=== PATIENT | female | born 1955 | race Caucasian/White ===

== ENCOUNTER 2016-10-07 20:10 | Emergency (ER) | payer BC ==
[~2016-10-07] VITALS: Ht 157.5 cm; Wt 95.3 kg
[~2016-10-07 20:10] MED LIST: CYCL-375 PO; HYDR-3989 PO; IBUP-1724 PO; MULT-1147 PO; PROP10TA10 PO
[2016-10-07 20:14] VITALS: Ht 157.5 cm; Wt 95.3 kg
--- OUTSIDE RECORDS SUMMARY | 2016-10-07 20:14 | XMS REPORT | Referral Summary ---
Author Author [facility], [facility] Organization [facility] Address Unknown Phone Unavailable Care Team Providers Care Lab Aide Name Role Phone Omkar Field Primary Care Physician [phone] Encounter VC Date(s): 07/20/16 - 07/20/16 [facility] [address] [place] [id number] Discharge Diagnosis: Pain, upper back Discharge Diagnosis: Chest pain Discharge Diagnosis: Anemia, iron deficiency Discharge Disposition: 01-Home or Self Care Attending Physician: Omkar Field DO Admitting Physician: Omkar Field DO Vital Signs Most recent to 1 oldest [Reference Range]: Peripheral Pulse 75 bpm Rate [60-100 bpm] (07/20/16 1:20 PM) Respiratory Rate 18 br/min [14-20 br/min] (07/20/16 1:20 PM) Blood Pressure 142/110 mmHg [90-140/60-90 mmHg] *HI* (07/20/16 1:20 PM) SpO2 98 % (07/20/16 1:20 PM) Problem List Condition Effective Dates Status Health Status Informant Back pain, Active chronic(Confirmed) Neck pain(Confirmed) Active Obesity(Confirmed) Active patient Right lumbar Active radiculitis(Confirme d) Tobacco Active patient user(Confirmed) Allergies, Adverse Reactions, Alerts Substance Reaction Severity Status cefaclor Trouble Breathing Active [id number] Active clindamycin Active Rocephin Active Vistaril Anxiety Active 1aka Rocephin Medications cyclobenzaprine 10 mg oral tablet 10 mg 1 tabs, Oral, q6hr, as needed for spasm, # 30 tabs, 0 Refill(s), Pharmacy : [id number], 1 tabs Oral q6hr,PRN:as needed for spasm Start Date: 07/20/16 Stop Date: 08/20/16 Status: Ordered ibuprofen 800 mg, Oral, q8hr, as needed for pain, 0 Refill(s) Start Date: 04/20/16 Status: Ordered lisinopril 20 mg oral tablet 20 mg 1 tabs, Oral, Daily, # 30 tabs, 0 Refill(s), Pharmacy: [id number] Start Date: 07/20/16 Status: Ordered propranolol 10 mg oral tablet 10 mg 1 tabs, Oral, BID, # 60 tabs, 1 Refill(s), Pharmacy: [id number], 1 tabs Oral BID Start Date: 07/05/16 Status: Ordered Results Hematology Most recent to 1 oldest [Reference Range]: WBC [4.8-10.8 7.1 10*3/uL 10*3/uL] (07/20/16 2:45 PM) RBC [4.00-5.20] 3.96 *LOW* (07/20/16 2:45 PM) Hgb [12.0-16.0 10.0 gm/dL gm/dL] *LOW* (07/20/16 2:45 PM) Hct [37.0-47.0 %] 33.2 % *LOW* (07/20/16 2:45 PM) MCV [82.0-99.0 fL] 83.8 fL (07/20/16 2:45 PM) MCH [27.0-32.0 pg] 25.3 pg *LOW* (07/20/16 2:45 PM) MCHC [32.0-36.0 30.1 gm/dL gm/dL] *LOW* (07/20/16 2:45 PM) RDW [11.5-14.5 %] 13.1 % (07/20/16 2:45 PM) Platelet [150-400 301 10*3/uL 10*3/uL] (07/20/16 2:45 PM) MPV [8.8-14.8 fL] 10.8 fL (07/20/16 2:45 PM) Immature 0.0 % Granulocytes (07/20/16 2:45 PM) [0.0-1.0 %] Neutrophils [51-75 55 % %] (07/20/16 2:45 PM) Lymphocytes [20-46 38 % %] (07/20/16 2:45 PM) Monocytes [4-11 %] 5 % (07/20/16 2:45 PM) Eosinophils [0-4 %] 1 % (07/20/16 2:45 PM) Basophils [0-2 %] 1 % (07/20/16 2:45 PM) Neutro Absolute 3.87 [1.90-7.00] (07/20/16 2:45 PM) Lymph Absolute 2.72 [0.80-3.30] (07/20/16 2:45 PM) Desha Absolute 0.37 [0.30-1.00] (07/20/16 2:45 PM) Eos Absolute 0.09 [0.00-0.50] (07/20/16 2:45 PM) Baso Absolute 0.04 [0.00-0.20] (07/20/16 2:45 PM) Chemistry Most recent to 1 oldest [Reference Range]: Sodium Lvl [135-144 143 mEq/L mEq/L] (07/20/16 2:45 PM) Potassium Lvl 3.9 mEq/L [3.5-5.2 mEq/L] (07/20/16 2:45 PM) Chloride [99-111 110 mEq/L mEq/L] (07/20/16 2:45 PM) CO2 [22-31 mEq/L] 25 mEq/L (07/20/16 2:45 PM) AGAP [3-20] 8 (07/20/16 2:45 PM) BUN [10-20 mg/dL] 15 mg/dL (07/20/16 2:45 PM) Glucose Lvl [70-99 91 mg/dL mg/dL] (07/20/16 2:45 PM) Creatinine Lvl 0.63 mg/dL [0.57-1.11 mg/dL] (07/20/16 2:45 PM) eGFR [>60 mL/min] >60 mL/min 1 (07/20/16 2:45 PM) Calcium Lvl 9.3 mg/dL [8.9-10.5 mg/dL] (07/20/16 2:45 PM) Albumin Lvl [3.5-5.0 4.0 gm/dL gm/dL] (07/20/16 2:45 PM) Total Protein 6.6 gm/dL [6.1-7.7 gm/dL] (07/20/16 2:45 PM) Globulin [1.8-4.0 2.6 gm/dL gm/dL] (07/20/16 2:45 PM) ALT [0-55 U/L] 15 U/L (07/20/16 2:45 PM) AST [5-34 U/L] 13 U/L (07/20/16 2:45 PM) Alk Phos [40-150 92 U/L U/L] (07/20/16 2:45 PM) Bili Total [0.2-1.2 0.3 mg/dL mg/dL] (07/20/16 2:45 PM) Chol [0-199 mg/dL] 244 mg/dL *HI* (07/20/16 2:45 PM) Trig [0-149 mg/dL] 275 mg/dL *HI* (07/20/16 2:45 PM) HDL [40-84 mg/dL] 45 mg/dL (07/20/16 2:45 PM) LDL [0-130 mg/dL] 144 mg/dL *HI* (07/20/16 2:45 PM) VLDL Cholesterol 55 mg/dL [0-28 mg/dL] *HI* (07/20/16 2:45 PM) Cardiac Risk 5.4 [0.0-5.0] *HI* (07/20/16 2:45 PM) TSH with Reflex Free 0.95 T4 [0.35-4.94] (07/20/16 2:45 PM) 1Result Comment: Multiply eGFR results by 1.21 for race. Immunizations No data available for this section Procedures No data available for this section Social History Social History Type Response Smoking Status Current every day smoker; Tobacco use per day: More than 1 pack Assessment and Plan Extracted from: Title: Office Visit Note Author: Omkar Field DO Date: 07/20/16 Assessment/Plan Anemia, iron deficiency 1. We will recheck her iron level today and make recommendations accordingly. If she is again anemic, this could explain her recurrent fatigue. Ordered: CBC w/ Differential Comprehensive Metabolic Panel Lipid Panel Office Visit Level 4 Est 95206 TSH with Reflex Free T4 Chest pain 1. Her history is concerning for recurrent angina. 2. EKG today was for normal sinus rhythm with a rate of 66. 3. Screening labs ordered, report is pending. 4. Cardiology referral for farther evaluation and recommendations. 5. Tobacco cessation recommended. 6. We will set her up for low dose CT of her lungs for the history of greater than 95-gnnf-yukc history and age greater than 55. 7. Follow-up in 2 weeks for reevaluation, sooner if worsening symptoms. Ordered: CBC w/ Differential Comprehensive Metabolic Panel Lipid Panel Office Visit Level 4 Est 27669 TSH with Reflex Free T4 Pain, upper back 1. Her upper back pain is chronic. This is muscular in nature. 2. Continue with heat compressions as previous. 3. Continue with stretching exercises. 4. Continue with muscle relaxers. Ordered: CBC w/ Differential Comprehensive Metabolic Panel Lipid Panel Office Visit Level 4 Est 34462 TSH with Reflex Free T4
--- OUTSIDE RECORDS SUMMARY | 2016-10-07 20:14 | XMS REPORT | Continuity of Care Document ---
Author Author [facility] Organization [facility] Address Unknown Phone Unavailable Support Name Relationship Address Phone SANDYPERCY Bolton Caregiver [address] [place] [address] Unavailable ELY RAWLS MD Caregiver [address] [place] [address] Unavailable MATTEO OGDEN Next Of Kin UNK Unknown [phone] Insurance Providers Guarantor Rhoda Ogden Address [address] [place] [address] Email DENIED/NO TO [facility] Policy Number [id number] Subscriber's Name Rhoda Ogden Relationship 18 Self Group Number [id number] Effective Date 05 Advance Directives Directive Response Recorded Date/Time Advanced Directives Type None 06/23/16 1:18pm Chief Complaint and Reason for Visit Chief Complaint Neck Pain Reason for Visit Neck pain on right side Problems Active Problems Medical Problem Onset Date Status Exacerbation of chronic back pain Unknown Acute Headache Unknown Acute Muscle spasm Unknown Acute Pain, dental Unknown Acute Pain, dental Unknown Acute Strep throat Unknown Acute Tension headache Unknown Acute Past Problems Medical Problem Onset Date Muscle spasm Unknown Neck pain on right side Unknown Medications Current Home Medications Medication Dose Units Route Directions Days Qty Instructions Start Date Cyclobenzaprine Hcl 10 Mg Tablet 1 Tab Oral Twice A Day 10/12/15 Cyclobenzaprine Hcl 10 Mg Tablet 1 Tab Oral Twice A Day 10 Tablet MAY CAUSE DROWSINESS OR DIZZINESS 06/23/16 Hydrocodone/Acetaminophen (Hydrocodon-Acetaminophen 5-325) 5-325 Tablet 1 Tab Oral Every 4-6 Hours as needed for Pain 10 Tablet 06/23/16 Ibuprofen 200 Mg Tablet 2 Tab Oral Every 4 Hours as needed for Pain 06/23/16 Multivits Min/Iron/Fa/Herb#186 (Hair, Skin & Nails Caplet) 1 Each Tablet 1 Tab Oral Daily 06/23/16 Propranolol Hcl 10 Mg Tablet 10 Mg Oral Twice A Day 10/12/15 Past Home Medications Medication Directions Ordered Status Baclofen 10 Mg Tablet, 1 Tab Oral Three Times A Day 03/25/15 Discontinued Ferrous Sulfate (Iron) 325 Mg Tablet, 1 Tab Oral Twice Daily With Meals 10/11 Discontinued Hydrocodone/Acetaminophen (Ellis 5-325 Tablet) 1 Each Tablet, 1 Tab Oral Four Times Daily as needed for Pain 10/12/15 Discontinued Social History Social History Problem Response Recorded Date/Time Onset Date Status Hx Substance Use No 06/23/2016 1:42pm Not Applicable Not Applicable Hx Alcohol Use Y OCC. 06/23/2016 1:42pm Not Applicable Not Applicable Tobacco Usage none 05/03/2014 2:13am Not Applicable Not Applicable Query Response Start Date Stop Date Smoking Status Current every day smoker Hospital Discharge Instructions No hospital discharge instructions. Plan of Care Discharge Date 06/23/16 1:55pm Disposition 01 DISCHARGED HOME, SELF-CARE Condition at Discharge Stable Instructions/Education Provided DI for Cervical Muscle Strain Prescriptions See Medication Section Referrals PERCY SO DO Address: [address] [place] [address] [place] [phone] Additional Instructions/Education Use Flexeril as needed with muscle spasms May use Ellis for severe pain Follow up with Dr So for further treatment and evaluation Care Plan and Goals Physician Care Plan Problem:Right lateral neck spasms Goal: Follow up with primary care provider Instructions: Use Flexeril as needed with muscle spasms May use Ellis for severe pain Follow up with Dr So for further treatment and evaluation Functional Status No functional status results. Allergies, Adverse Reactions, Alerts Allergen Type Severity Reaction Status Last Updated Hydroxyzine Allergy Unknown Active 06/23/16 Cefaclor Allergy Unknown DYSPNEA Active 06/23/16 Clindamycin Allergy Unknown Active 06/23/16 Povidone-iodine Allergy Unknown Active 06/23/16 Immunizations Query Response on File Recorded Date/Time Hx Influenza Vaccination Y fall 201303/25/15 1:33pm Hx Influenza Vaccination Y fall 201303/25/15 1:33pm Influenza Vaccine Hx 2016 06/23/16 1:42pm Vital Signs Acute Vital Signs Vital Response Date/Time Temperature (Fahrenheit) 98.9 deg F (96.8 - 99.1) 06/23/2016 1:56pm Temperature (Calculated Celsius) 37.62410 degrees C (36.0 - 37.3) 06/23/2016 1:56pm Pulse Rate (adult) 89 bpm (60 - 100) 06/23/2016 1:56pm Respiratory Rate 14 breaths/min (10 - 20) 06/23/2016 1:56pm O2 Sat by Pulse Oximetry 95 % (90 - 100) 06/23/2016 1:56pm Blood Pressure 166/94 mm Hg 06/23/2016 1:56pm Height (Feet) 5 feet 06/23/2016 1:18pm Height (Inches) 2.00 inches 06/23/2016 1:18pm Weight (Kilograms) 92.100 kg 06/23/2016 1:18pm Body Mass Index (BMI) 37.0 06/23/2016 1:18pm Results No known relevant diagnostic tests, laboratory data and/or discharge summary. Procedures Procedure Status Date Provider(s) THER/PROPH/DIAG INJ SC/IM Completed 04/19/16 EMERGENCY DEPT VISIT Completed 04/19/16 [id number]"INJECTION, KETOROLAC TROMETHAMINE, PER 15 MG" Completed 04/19/16 Encounters Encounter Location Arrival/Admit Date Discharge/Depart Date Attending Provider Departed Emergency Room [facility] 06/23/16 1:14pm 06/23/16 1: 55pm ELY RAWLS MD Departed Emergency Room [facility] 04/19/16 1:22pm 04/19/16 2: 19pm ARSEN SHAH DO Recent Diagnosis
--- OUTSIDE RECORDS SUMMARY | 2016-10-07 20:14 | XMS REPORT | Continuity of Care Document ---
Author Author [facility] Organization [facility] Address Unknown Phone Unavailable Support Name Relationship Address Phone NAE GOMEZ MD Caregiver [address] [place] [address] [place] [phone] LESLIE DAVIS Next Of Kin Unknown [phone] Insurance Providers Payer Name Policy Number Subscriber Name Relationship [facility] [id number] Rhoda Marquez 20 Self Advance Directives Directive Response Recorded Date/Time Advanced Directives Type None 06/07/14 3:35pm Problems Medical Problems Problem Onset Date Status Exacerbation of chronic back pain Unknown Active Muscle spasm Unknown Active Pain, dental Unknown Active Pain, dental Unknown Active Medications Medication Dose Route Sig Days/Qty Instructions Order Date Discontinued Date Status Baclofen 10 Mg PO THREE TIMES A DAY For SPASMS 30 Qty 05/03/14 Active [No Known Meds] 05/03/14 Active Clindamycin HCl 300 Mg PO THREE TIMES A DAY 7 Days 06/07/14 Active Oxycodone HCl/Acetaminophen 1 Tab PO FOUR TIMES DAILY 20 Qty 06/07/14 Active Social History Social History Problem Response Recorded Date/Time Smoking Status Current every day smoker 06/07/2014 3:35pm When did patient START smoking? AGE 19 06/07/2014 3:35pm Query Response Start Date Stop Date Smoking Status Current every day smoker Hospital Discharge Instructions No hospital discharge instructions. Plan of Care No plan of care. Functional Status Query Response Date Recorded Physical Hygiene Self June 07, 2014 3:35pm Disabilities None June 07, 2014 3:35pm Devices Used None June 07, 2014 3:35pm Dressing Self June 07, 2014 3:35pm Ambulation Self June 07, 2014 3:35pm Diet Self June 07, 2014 3:35pm Mental Status Alert Oriented June 07, 2014 3:35pm Disabilities None June 07, 2014 3:35pm Devices Used None June 07, 2014 3:35pm Physical Hygiene Self June 07, 2014 3:35pm Dressing Self June 07, 2014 3:35pm Ambulation Self June 07, 2014 3:35pm Diet Self June 07, 2014 3:35pm Allergies, Adverse Reactions, Alerts Allergen Type Severity Reaction Status Last Updated Hydroxyzine Allergy Unknown Active 06/07/14 Soap Allergy Unknown Active 06/07/14 Cefaclor Allergy Unknown DYSPNEA Active 06/07/14 Povidone-iodine Allergy Unknown Active 06/07/14 Immunizations Name Given Type Hx Influenza Vaccination Y FALL 2013 Historical Hx Influenza Vaccination Y FALL 2013 Historical Vital Signs Acute Vital Signs Vital Response Date/Time Temperature (Fahrenheit) 97.2 deg F (96.8 - 99.1) Temperature (Calculated Celsius) 36.14189 degrees C (36.0 - 37.3) Pulse Rate (adult) 59 bpm (60 - 100) Respiratory Rate 20 breaths/min (10 - 20) O2 Sat by Pulse Oximetry 95 % (90 - 100) Blood Pressure 145/81 mm Hg Height 5 ft 2 in Weight 197 lb Body Mass Index 36.0 kg/m^2 Results Test Source Date Result Interp. Ref. Range Comments Alanine Aminotransferase (ALT/SGPT) January 24, 2008 9:28pm 19 U/L N 9-52 Albumin January 24, 2008 9:28pm 4.3 G/DL N 3.5-5.0 Albumin/Globulin Ratio January 24, 2008 9:28pm 1.3 RATIO N 1.1-2.2 Alkaline Phosphatase January 24, 2008 9:28pm 82 U/L N 38-126 Amylase Level January 24, 2008 9:28pm 53 U/L N 30-110 Anion Gap January 24, 2008 9:28pm 12.6 MEQ/L N 5-15 Aspartate Amino Transf (AST/SGOT) January 24, 2008 9:28pm 24 U/L N 14-59 BUN/Creatinine Ratio January 24, 2008 9:28pm 15 RATIO N 6-26 Basophils # (Auto) January 24, 2008 9:28pm 0.0 T/MM3 N 0-0.2 Basophils (%) (Auto) January 24, 2008 9:28pm 0.3 % N 0-2 Blood Urea Nitrogen January 24, 2008 9:28pm 11 MG/DL N 7-17 Calcium Level January 24, 2008 9:28pm 9.4 MG/DL N 8.4-10.2 Calculated Osmolality January 24, 2008 9:28pm 276 MOSM/KG N 273-286 Carbon Dioxide Level January 24, 2008 9:28pm 26 MEQ/L N 22-30 Chloride Level January 24, 2008 9:28pm 105 MEQ/L N 98-107 Creatinine January 24, 2008 9:28pm 0.7 MG/DL N 0.7-1.2 Eosinophils # (Auto) January 24, 2008 9:28pm 0.1 T/MM3 N 0-0.5 Eosinophils (%) (Auto) January 24, 2008 9:28pm 0.8 % N 0-4 Globulin January 24, 2008 9:28pm 3.3 G/DL N 2-3.6 Glucose Level January 24, 2008 9:28pm 105 MG/DL N 74-106 Hematocrit January 24, 2008 9:28pm 40.9 % N 36-46 Hemoglobin January 24, 2008 9:28pm 13.9 GM/DL N 12-16 Lipase January 24, 2008 9:28pm 95 U/L N 23-300 Lymphocytes # (Auto) January 24, 2008 9:28pm 2.7 T/MM3 N 1-4.8 Lymphocytes (%) (Auto) January 24, 2008 9:28pm 36.7 % N 23-45 Mean Corpuscular Hemoglobin January 24, 2008 9:28pm 30.6 UUG N 26-34 Mean Corpuscular Hemoglobin Concent January 24, 2008 9:28pm 34.0 GM/DL N 31 -37 Mean Corpuscular Volume January 24, 2008 9:28pm 90.1 UM3 N 80-100 Mean Platelet Volume January 24, 2008 9:28pm 10.5 UM3 H 7.4-10.4 Monocytes # (Auto) January 24, 2008 9:28pm 0.3 T/MM3 N 0-0.8 Monocytes (%) (Auto) January 24, 2008 9:28pm 4.4 % N 0-9.0 Neutrophils # (Auto) January 24, 2008 9:28pm 4.2 T/MM3 N 1.8-7.7 Neutrophils (%) (Auto) January 24, 2008 9:28pm 57.8 % N 33-66 Platelet Count January 24, 2008 9:28pm 204 T/MM3 N 130-400 Potassium Level January 24, 2008 9:28pm 4.4 MEQ/L N 3.6-5 RDW Standard Deviation January 24, 2008 9:28pm 41.7 FL N 36.9-50.2 Red Blood Count January 24, 2008 9:28pm 4.54 M/MM3 N 4.00-5.20 Sodium Level January 24, 2008 9:28pm 143 MEQ/L N 134-144 Total Bilirubin January 24, 2008 9:28pm 0.43 MG/DL N 0.20-1.30 Total Protein January 24, 2008 9:28pm 7.6 G/DL N 6.3-8.2 Urine Bacteria January 24, 2008 9:27pm Trace - Has specimen been collected/obtained? Y Urine Bilirubin January 24, 2008 9:27pm Negative - Has specimen been collected/obtained? Y Urine Blood January 24, 2008 9:27pm Negative - Has specimen been collected/obtained? Y Urine Collection Type January 24, 2008 9:27pm Voided - Has specimen been collected/obtained? Y Urine Color January 24, 2008 9:27pm Yellow - Has specimen been collected /obtained? Y Urine Glucose (UA) January 24, 2008 9:27pm Negative - Has specimen been collected/obtained? Y Urine Ketones January 24, 2008 9:27pm Negative - Has specimen been collected/obtained? Y Urine Leukocyte Esterase January 24, 2008 9:27pm 1+ H - Has specimen been collected/obtained? Y Urine Nitrite January 24, 2008 9:27pm Negative - Has specimen been collected/obtained? Y Urine Protein January 24, 2008 9:27pm Negative - Has specimen been collected/obtained? Y Urine RBC January 24, 2008 9:27pm 0-1 /HPF - Has specimen been collected /obtained? Y Urine Specific [place] January 24, 2008 9:27pm 1.015 - Has specimen been collected/obtained? Y Urine Squamous Epithelial Cells January 24, 2008 9:27pm Many - Has specimen been collected/obtained? Y Urine Turbidity January 24, 2008 9:27pm Clear - Has specimen been collected/obtained? Y Urine Urobilinogen January 24, 2008 9:27pm Normal EU/DL - Has specimen been collected/obtained? Y Urine WBC January 24, 2008 9:27pm 1-3 /HPF - Has specimen been collected /obtained? Y Urine pH January 24, 2008 9:27pm 5.0 - Has specimen been collected/ obtained? Y White Blood Count January 24, 2008 9:28pm 7.3 T/MM3 N 4.5-11.0 Procedures No known history of procedures. Encounters Encounter Location Date/Time Departed Emergency Room [facility] 06/07/14 2:27pm Departed Emergency Room [facility] 05/03/14 12:03am Recent Diagnosis
--- OUTSIDE RECORDS SUMMARY | 2016-10-07 20:14 | XMS REPORT | Continuity of Care Document ---
Author Author [facility] Organization [facility] Address Unknown Phone Unavailable Support Name Relationship Address Phone ALYSSA PILLAI MD Caregiver [address] [place] [address] Unavailable DALI BARAJAS I DO Caregiver [address] [place] [address] LESLIE DAVIS Next Of Kin Unknown [phone] Insurance Providers Payer Name Policy Number Subscriber Name Relationship [facility] [id number] Rhoda Marquez 20 Self Advance Directives Directive Response Recorded Date/Time Advanced Directives Type None 05/03/14 1:50am Problems Medical Problems Problem Onset Date Status Exacerbation of chronic back pain Unknown Active Muscle spasm Unknown Active Medications Medication Dose Route Sig Days/Qty Instructions Order Date Discontinued Date Status Baclofen 10 Mg PO THREE TIMES A DAY For SPASMS 30 Qty 05/03/14 Active [No Known Meds] 05/03/14 Active Social History Social History Problem Response Recorded Date/Time Smoking Status Current every day smoker 05/03/2014 1:15am When did patient START smoking? AGE 19 05/03/2014 1:15am Hospital Discharge Instructions No hospital discharge instructions. Plan of Care No plan of care. Functional Status Query Response Date Recorded Physical Hygiene Self May 03, 2014 1:15am Disabilities None May 03, 2014 1:15am Devices Used None May 03, 2014 1:15am Dressing Self May 03, 2014 1:15am Ambulation Self May 03, 2014 1:15am Diet Self May 03, 2014 1:15am Mental Status Alert May 03, 2014 2:13am Disabilities None May 03, 2014 1:15am Devices Used None May 03, 2014 1:15am Physical Hygiene Self May 03, 2014 1:15am Dressing Self May 03, 2014 1:15am Ambulation Self May 03, 2014 1:15am Diet Self May 03, 2014 1:15am Allergies, Adverse Reactions, Alerts Allergen Type Severity Reaction Status Last Updated Hydroxyzine Allergy Unknown Active 05/03/14 Soap Allergy Unknown Active 05/03/14 Cefaclor Allergy Unknown DYSPNEA Active 01/24/08 Povidone-iodine Allergy Unknown Active 05/03/14 Immunizations No immunization records. Vital Signs Acute Vital Signs Vital Response Date/Time Temperature (Fahrenheit) 96.5 deg F (96.8 - 99.1) Temperature (Calculated Celsius) 35.55670 degrees C (36.0 - 37.3) Pulse Rate (adult) 72 bpm (60 - 100) Respiratory Rate 18 breaths/min (10 - 20) O2 Sat by Pulse Oximetry 97 % (90 - 100) Blood Pressure 142/79 mm Hg Height 5 ft 2 in Weight 193 lb Body Mass Index 35.0 kg/m^2 Results Test Source Date Result Interp. [...] specimen been collected /obtained? Y Urine Specific [place] January 24, 2008 9:27pm 1.015 - Has [...] Encounters Encounter Location Date/Time Departed Emergency Room [facility] 05/03/14 12:03am Recent Diagnosis
--- OUTSIDE RECORDS SUMMARY | 2016-10-07 20:27 | XMS REPORT | Continuity of Care Document ---
Author Author [facility] Organization [facility] Address Unknown Phone Unavailable Support Name Relationship Address Phone ALYSSA PILLAI MD Caregiver [address] [place] [address] Unavailable DALI BARAJAS I DO Caregiver [address] [place] [address] LESLIE DAVIS Next Of Kin Unknown [phone] Insurance Providers Payer Name Policy Number Subscriber Name Relationship [facility] [id number] Rhoda Marquez 20 Self Advance Directives Directive [...] F (96.8 - 99.1) Temperature (Calculated Celsius) 35.36758 degrees C (36.0 - 37.3) Pulse Rate [...] specimen been collected /obtained? Y Urine Specific [place] January 24, 2008 9:27pm 1.015 - Has [...] Encounters Encounter Location Date/Time Departed Emergency Room [facility] 05/03/14 12:03am Recent Diagnosis
--- OUTSIDE RECORDS SUMMARY | 2016-10-07 20:28 | XMS REPORT | Continuity of Care Document ---
Author Author [facility] Organization [facility] Address Unknown Phone Unavailable Support Name Relationship Address Phone NAE GOMEZ MD Caregiver [address] [place] [address] [place] [phone] LESLIE DAVIS Next Of Kin Unknown [phone] Insurance Providers Payer Name Policy Number Subscriber Name Relationship [facility] [id number] Rhoda Marquez 20 Self Advance Directives Directive [...] F (96.8 - 99.1) Temperature (Calculated Celsius) 36.79431 degrees C (36.0 - 37.3) Pulse Rate [...] specimen been collected /obtained? Y Urine Specific [place] January 24, 2008 9:27pm 1.015 - Has [...] Encounters Encounter Location Date/Time Departed Emergency Room [facility] 06/07/14 2:27pm Departed Emergency Room [facility] 05/03/14 12:03am Recent Diagnosis
[2016-10-07] MEDS ORDERED: DICY10CA48 PO (20:31)
[2016-10-07] MEDS ORDERED: FERR-70 PO (20:31)
--- NOTE | 2016-10-07 20:39 | ERPDOC ---
Departure Disposition Decision Date: Oct 07, 2016 Disposition Decision Time: 21:17 Disposition: 01 DISCHARGED HOME, SELF-CARE Impression Impression Impression: Primary Impression: Shingles Herpes zoster complications: without complications Qualified Codes: B02.9 - Zoster without complications Severity: Moderate Condition: Stable Seen By: Mid-level only Referrals: PERCY SO DO (Family) Patient Instructions: Shingles (ED) Problems/Meds/Labs Reviewed?: Yes Medications reviewed and manag: Yes Additional Instructions: Take the Acyclovir as prescribed. May use the Taiban as needed for pain. I do want you to follow up with your primary care provider if any further issues/ concerns. You may develop more of a rash over the next few days. Follow up care ordered?: Yes Mental Status: Alert Scripts Hydrocodone/Acetaminophen (Taiban 5-325 Tablet) 5-325 Tablet 1 TAB PO Q6H Y for PAIN, #15 TAB 0 Refills Prov: SUSHANT CHRISTOPHER [place] [facility] 10/07/16 Acyclovir (Acyclovir) 800 Mg Tablet 1 TAB PO 5XD, #35 TAB 0 Refills Prov: SUSHANT CHRISTOPHER [place] [facility] 10/07/16 HPI - Abdominal Pain General Chief Complaint: Abdominal Pain Stated Complaint: ABD PAIN Time Seen by Provider: 20:17 Source: patient History/Exam Limitations: no limitations HPI - Abdominal Pain Initial Comments For the last week she has had some pain in the left upper abdomen that has not improved at all. She denies any fever/chills or vomiting. has had some mild nausea. She did notice an eruption of a rash in the same region on the left abdomen where she was having her pain. This extends and wraps around to the back. Has been taking Ibuprofen at home but it is not helping the pain much at all. Occurred At: home Onset: Gradual Duration: 1 week Quality: aching, burning, throbbing Location: [facility] Radiation: flank (left flank) Activities at Onset: none Associated Symptoms: back pain (left flank), nausea/vomiting (nausea today), rash (left upper abdomen in the area of the pain), DENIES: chest pain, diaphoresis, fatigue, fever/chills, headache, heartburn, shortness of breath, swelling/mass in abdomen, syncope, weakness Hx of Similar Symptoms: No Allergies: Coded Allergies: cefaclor (Verified Allergy, Unknown, DYSPNEA, 10/07/16) clindamycin (Verified Allergy, Unknown, 10/07/16) hydroxyzine (Verified Allergy, Unknown, 10/07/16) povidone-iodine (Verified Allergy, Unknown, 10/07/16) Past History Patient Surgical History Hysterectomy [place] tooth extraction. Left carpal tunnel repair. Bilateral 1st rib removal Past Medical History ENMT: cataracts Neurological: headaches Musculoskeletal: back pain, neck pain Surgical History Reproductive/: hysterectomy Family History Family PMH: FOUND: other Vaccines Hx Influenza Vaccination: Yes (FALL 2013) Social History Does patient use chewing tobac: No # of Packs/Tins per Day: 1.5 # of Years: 40 Second Hand Exposure: No Substance Use Type: does not use Alcohol Intake: occasionally Marital Status: Single Housing: other Service: No Current Occupational Status: employed Occupational Hazard: No Review of Systems Constitutional Constitutional: DENIES: chills, dizziness, fatigue, fever, weakness Cardiovascular Cardiac: DENIES: chest pain, orthopnea Rhythm/Rate: DENIES: irregular beat, palpitations Vascular: DENIES: pedal edema, unilateral swelling Pulmonary Respiratory: DENIES: cough, dyspnea, sputum, tachypnea GI Upper Abdomen: nausea, pain, DENIES: vomiting Lower Abdomen: DENIES: blood in stool, constipation, diarrhea, pain Integumentary Skin: rash Neurological General: DENIES: headache, numbness, tingling, weakness Physical Exam General General Nourishment: well nourished, well developed, appears stated age, no acute distress, adult, obese General Body Habitus: well groomed Vitals and Pain First Documented Vital Signs Date Time Temp Pulse Resp B/P Pulse Ox O2 Delivery O2 Flow Rate FiO2 10/07/16 20:14 97.9 70 18 202/106 98 Room Air Weight: Kilograms: 95.300 Height (feet): 5 Height (inches): 2.00 Triage Pain Scale: RN VS reviewed by Provider: Yes Normal Exams: Neck: Full range of motion, without adenopathy, JVD, bruits or thyromegaly Chest/Resp: Clear all garcia, with good airflow, and symmetry bilaterally CV: Regular rate and rhythm, without murmur or gallop, Pulses 2+ all extremities, capillary refill, <2 seconds all ext., no pedal edema noted Abdomen: Bowel sounds positive, non-distended, no hepatosplenomegaly, masses or bruits noted Lymphatic: No lymphadenopathy, or lymphedema noted Neurologic: Patient is alert, and oriented Psychiatric: Patient exhibits, appropriate attention, emotion and affect Abdomen Inspection: NOT FOUND: distention Palpation: FOUND: soft, tender (TTP at the site of the rash), NOT FOUND: involuntary guarding, rebound, voluntary guarding Auscultation: FOUND: normoactive Integumentary (brief) Integumentary Brief: FOUND: rash (She has several small erythematous round lesions on the anterior abdomen at the site of where her abdominal pain is. They do appear to be slightly vesicular in appearance. She has one very small one on her back as well close to the spine where she is also having pain. ) Differential Diagnoses Considering: Bowel Obstruction, Constipation, Gastroenteritis, Pancreatitis, Other (Shingles,) Progress Results/Orders Orders Procedure Category Date Status Time Cbc W/Auto LAB 10/07/16 Complete Diff-Reflex Manual Cmp - Comprehensive LAB 10/07/16 Complete Metabolic Lipase LAB 10/07/16 Complete Hydrocodone/Acetaminophen PHA 10/07/16 Complete (Taiban 5/325) 20:45 Hydrocodone/Apap PHA 10/07/16 Complete 5/325 Prepack (Taiban 5 21:30 Acyclovir (Zovirax) PHA 10/07/16 Complete 21:30 Lab Results Laboratory Tests Test 10/07/16 20:52 White Blood Count 6.2T/MM3 Red Blood Count 4.22M/MM3 Hemoglobin 12.4GM/DL Hematocrit 38.1% Mean Corpuscular Volume 90.3UM3 Mean Corpuscular Hemoglobin 29.4UUG Mean Corpuscular Hemoglobin Concent 32.5GM/DL RDW Standard Deviation 59.4FL Platelet Count 201T/MM3 Mean Platelet Volume 10.3UM3 Immature Granulocyte % (Auto) 0.2% Neutrophils (%) (Auto) 53.5% Lymphocytes (%) (Auto) 38.0% Monocytes (%) (Auto) 5.2% Eosinophils (%) (Auto) 2.6% Basophils (%) (Auto) 0.5% Absolute Immature Granulocyte (auto 0.01T/MM3 Absolute Neutrophils (auto) 3.3T/MM3 Absolute Lymphocytes (auto) 2.4T/MM3 Absolute Monocytes (auto) 0.3T/MM3 Absolute Eosinophils (auto) 0.2T/MM3 Absolute Basophils (auto) 0.0T/MM3 Turbidity < 20 Sodium Level 144MEQ/L Potassium Level 4.2MEQ/L Chloride Level 108MEQ/L Carbon Dioxide Level 27MEQ/L Anion Gap 9MEQ/L Blood Urea Nitrogen 10.0MG/DL Creatinine 0.6MG/DL Glomerular Filtration Rate Calc 103 BUN/Creatinine Ratio 17RATIO Glucose Level 97MG/DL Calculated Osmolality 276MOSM/KG Calcium Level 8.9MG/DL Total Bilirubin 0.50MG/DL Icterus Index < 2 Aspartate Amino Transf (AST/SGOT) 23U/L Alanine Aminotransferase (ALT/SGPT) 33U/L Alkaline Phosphatase 82U/L Total Protein 6.7G/DL Albumin 3.7G/DL Globulin 3.0G/DL Albumin/Globulin Ratio 1.2RATIO Lipase 33U/L Chemistry Specimen Hemolysis < 15 Medications Current ED Medications Acetaminophen/ Hydrocodone Bitart (Taiban 5/325) 1 tab O ONCE PO Last administered on 10/07/16t 20:50; Start 10/07/16 at 20:45; Stop 10/07/16 at 20:46; Status DC Acetaminophen/ Hydrocodone Bitart (NORCO 5 (PrePack)) 1 pack O ONCE SENT HOME ; Start 10/07/16 at 21:30; Stop 10/07/16 at 21:31; Status DC Acyclovir (Zovirax) 800 mg O ONCE PO ; Start 10/07/16 at 21:30; Stop 10/07/16 at 21:31; Status DC Progress Progress CBC, CMP, and lipase today are normal. I do think the pain is due to the shingles outbreak. Will have her start some Acyclovir today and Taiban for pain. F/U with her PCP if not improving at all. SUSHANT CHRISTOPHER APRN Oct 07, 2016 20:39
[2016-10-07] MEDS ORDERED: HYDROCODONE/APAP 5 mg/325 mg TABLET PO ONE (20:45)
--- NOTE | 2016-10-07 20:50 | NUR ---
LAB WITH PT
[2016-10-07 21:06] LABS: ALBUMIN 3.7 G/DL (3.5-5.0); ALBUMIN/GLOBULIN RATIO 1.2 RATIO (1.1-2.2); ALKALINE PHOSPHATASE 82 U/L (38-126); ALT (SGPT) 33 U/L (9-52); ANION GAP 9 MEQ/L (5-15); AST (SGOT) 23 U/L (14-36); BUN/CREATININE RATIO 17 RATIO (6-26); CALCIUM 8.9 MG/DL (8.4-10.2); CHLORIDE 108 MEQ/L (98-107); CO2 - CARBON DIOXIDE 27 MEQ/L (22-30); CREATININE 0.6 MG/DL (0.7-1.2); GLOMERULAR FILTRATION RATE 103; GLUCOSE 97 MG/DL (65-110); LIPASE 33 U/L (23-300); POTASSIUM 4.2 MEQ/L (3.6-5); SODIUM 144 MEQ/L (134-144); TOTAL PROTEIN 6.7 G/DL (6.3-8.2)
[2016-10-07 21:10] LABS: BASOPHILS % (AUTO) 0.5 % (0-2); EOSINOPHILS # (AUTO) 0.2 T/MM3 (0-0.5); EOSINOPHILS % (AUTO) 2.6 % (0-4); HCT - HEMATOCRIT 38.1 % (36-46); HGB - HEMOGLOBIN 12.4 GM/DL (12-16); IMMATURE GRANULOCYTE # (AUTO) 0.01 T/MM3 (0.00-0.03); IMMATURE GRANULOCYTE % (AUTO) 0.2 % (0.0-0.5); LYMPHOCYTES # (AUTO) 2.4 T/MM3 (1-4.8); MEAN CORPUSCULAR HGB 29.4 UUG (26-34); MEAN CORPUSCULAR HGB CONC(MCHC 32.5 GM/DL (31-37); MEAN CORPUSCULAR VOLUME 90.3 UM3 (80-100); MEAN PLATELET VOLUME 10.3 UM3 (9.4-12.4); MONOCYTES # (AUTO) 0.3 T/MM3 (0-0.8); MONOCYTES % (AUTO) 5.2 % (0-9.0); NEUTROPHILS #(AUTO)-ABSOLUTE 3.3 T/MM3 (1.8-7.7); NEUTROPHILS % (AUTO) 53.5 % (33-66); RED BLOOD COUNT 4.22 M/MM3 (4.00-5.20); WBC - WHITE BLOOD COUNT 6.2 T/MM3 (4.5-11.0)
[2016-10-07] MEDS ORDERED: ACYC800T PO (21:19)
[2016-10-07] MEDS ORDERED: HYDR-4246 PO (21:19)
[2016-10-07] MEDS ORDERED: HYDROCODONE/APAP 5/325 (PrePack) SENT HOME ONE (21:30)
[2016-10-07] MEDS ORDERED: ACYCLOVIR 800 MG TABLET PO ONE (21:30)
--- NOTE | 2016-10-07 21:45 | NUR ---
PT REFUSES TO HAVE BP TAKEN AGAIN IT WAS PAINFUL THE FIRST TIME
[2016-10-07 21:50] VITALS: BP 202/106; PULSE 70; RESP 18; TEMP 97.9; O2SAT 98
== END 2016-10-07 21:50 | disposition home or self-care (01) ==
LOC: ED 20:10
DX: B02.9 Zoster without complications (principal)
CPT/HCPCS: 36415; 80053; 83690; 85025

== ENCOUNTER 2017-07-01 00:29 | Inpatient (IN) ==
--- OUTSIDE RECORDS SUMMARY | 2017-07-01 00:47 | External Medical Summary | Referral Summary ---
:1955 Author Organization [facility] [place] [address] Care Team Providers Name Role Phone Omkar Field Primary Care Physician Encounter VC Date(s): 12/20/15 - 12/20/15 [facility] [place] [phone] [place] Discharge Diagnosis: Tobacco user Discharge Diagnosis: Nonproductive cough Discharge Diagnosis: Anemia, iron deficiency Discharge Disposition: 01-Home or Self Care Attending Physician: Omkar Field DO Admitting Physician: Omkar Field DO Vital Signs Most recent to oldest [Reference Range]: 1 Peripheral Pulse Rate [60-100 bpm] 86 bpm (12/20/15 1:41 PM) Blood Pressure [90-140/60-90 mmHg] 125/90 mmHg (12/20/15 1:41 PM) SpO2 98 % (12/20/15 1:41 PM) Problem List Condition Effective Dates Status Health Status Informant Back pain, chronic(Confirmed) Active Neck pain(Confirmed) Active Obesity(Confirmed) Active patient Right lumbar radiculitis(Confirmed) Active Tobacco user(Confirmed) Active patient Allergies, Adverse Reactions, Alerts Substance Reaction Severity Status cefaclor Trouble Breathing Active cefTRIAXone1 Active clindamycin Active Rocephin Active Vistaril Anxiety Active 1aka Rocephin Medications cyclobenzaprine 10 mg oral tablet See Instructions, TAKE ONE TABLET BY MOUTH TWICE DAILY NEEDED FOR SPASM, # 60 tabs, eRx: [facility], TAKE ONE TABLET BY MOUTH TWICE DAILY NEEDED FOR SPASM Start Date: 12/15/15 Status: Orderedferrous sulfate 325 mg (65 mg elemental iron) oral tablet See Instructions, TAKE ONE TABLET BY MOUTH TWICE DAILY, # 60 tabs, eRx: [facility], TAKEONE TABLET BY MOUTH TWICE DAILY Start Date: 11/05/15 Status: Orderedferrous sulfate 325 mg (65 mg elemental iron) oral tablet See Instructions, TAKE ONE TABLET BY MOUTH TWICE DAILY, # 60 tabs, eRx: [facility], TAKEONE TABLET BY MOUTH TWICE DAILY Start Date: 12/14/15 Status: Orderedmagnesium oxide Oral, 0 Refill(s) Start Date: 03/12/15 Status: OrderedNorco 5 mg-325 mg oral tablet 1 tabs, Oral, q6hr, as needed for pain, # 30 tabs, 0 Refill(s) Start Date: 10/12/15 Status: Orderedpotassium iodide mg, Oral, Daily, 0 Refill(s) Start Date: 03/12/15 Status: Orderedpropranolol 10 mg oral tablet See Instructions, TAKE ONE-HALF TABLET BY MOUTH TWICE DAILY, # 30 tabs, eRx: [facility],TAKE ONE-HALF TABLET BY MOUTH TWICE DAILY Start Date: 11/05/15 Status: Orderedpropranolol 10 mg oral tablet See Instructions, TAKE ONE-HALF TABLET BY MOUTH TWICE DAILY NEEDS APPT FOR MED CHECK, # 30 tabs, 0Refill(s), Pharmacy: [facility], TAKE ONE- HALF TABLET BY MOUTH TWICE DAILY; NEEDS APPT FOR MED CHECK Start Date: 12/14/15 Status: Ordered Results No data available for this section Immunizations No data available for this section Procedures No data available for this section Social History Social History Type Response Smoking Status Current every day smoker; Tobacco use per day: More than 1 pack Assessment and Plan Extracted from: Title: Office Visit Note Author: Omkar Field DO Date: 12/20/15 Assessment/Plan 1.Anemia, iron deficiency, Other iron deficiency anemias 1. Her hemoglobin is now corrected at 13.2. 2. Continue with iron replacement daily. 3. Recheck CBC in 6 months. 4. Follow-up if worsening fatigue or new concerns of GI bleed. Ordered: Office Visit Level 3 Est 91938 2.Tobacco user, Tobacco use 1. Tobacco cessation recommended, patient voiced understanding. 2. The coughing is likely secondary to chronic tobacco use. 3. Follow-up if the coughing becomes productive, worsening presentation or she develops weight loss, fatigue, decreased appetite or concerns for worsening pulmonary presentation. Ordered: Office Visit Level 3 Est 95357 Smoking and tobacco use cessation counseling visit 3 to 10 minutes [id number] 3.Nonproductive cough, Cough 1As above. 2. If chronic cough persists then we may consider sending her to ENT for evaluation. Ordered: Office Visit Level 3 Est 79999
--- OUTSIDE RECORDS SUMMARY | 2017-07-01 00:47 | External Medical Summary | Referral Summary ---
:1955 Author Organization [facility], [facility] Address [address] [place] [address] [place] [address] Care Team Providers Name Role Phone Omkar Field Primary Care Physician Encounter VC Date(s): 02/04/15 - 02/04/15 [facility], [address] [place] [phone] [place] Discharge Disposition: 01-Home or Self Care Attending Physician: Ricardo Ricardo MD Admitting Physician: Ricardo Ricardo MD Vital Signs Most recent to oldest [Reference Range]: 1 Temperature Tympanic [36.6-38.1 degC] 37.3 degC (02/04/15 5:02 PM) Apical Heart Rate [60-100 bpm] 77 bpm (02/04/15 5:02 PM) Blood Pressure [90-140/60-90 mmHg] 162/102 mmHg *HI* (02/04/15 5:02 PM) SpO2 98 % (02/04/15 5:02 PM) Problem List Condition Effective Dates Status Health Status Informant Back pain, chronic(Confirmed) Active Neck pain(Confirmed) Active Obesity(Confirmed) Active patient Right lumbar radiculitis(Confirmed) Active Tobacco user(Confirmed) Active patient Allergies, Adverse Reactions, Alerts Substance Reaction Severity Status cefaclor Trouble Breathing Active clindamycin Active Vistaril Anxiety Active Medications cyclobenzaprine 10 mg oral tablet See Instructions, 1 tabs Oral BID,x30 days,PRN:as needed for spasm, # 60 tabs, eRx: [id number], 1 tabs Oral BID,x30 days,PRN:as needed for spasm Start Date: 07/22/15 Status: Orderedferrous sulfate 325 mg (65 mg elemental iron) oral tablet See Instructions, 1 tabs Oral BID, # 60 tabs, 2 Refill(s), eRx: [facility], 1 tabs Oral BID Start Date: 07/22/15 Status: Orderedmagnesium oxide Oral, 0 Refill(s) Start Date: 03/12/15 Status: Orderedpotassium iodide mg, Oral, Daily, 0 Refill(s) Start Date: 03/12/15 Status: Orderedpropranolol 10 mg oral tablet 5 mg 0.5 tabs, Oral, BID, # 30 tabs, 2 Refill(s), Pharmacy: [facility], 0.5 tabs Oral BID,x30 days Start Date: 06/14/15 Stop Date: 09/12/15 Status: Ordered Results No data available for this section Immunizations No data available for this section Procedures No data available for this section Social History Social History Type Response Smoking Status Current every day smoker; Tobacco use per day: More than 1 pack Assessment and Plan Extracted from: Title: Ambulatory Patient Education Author: Ricardo Ricardo MD Date: 02/04/15 Family Medicine Back Pain, Adult Low back pain is very common. About 1 in 5 people have back pain.The cause of low back pain is rarely dangerous. The pain often gets better over time. About half of people with a sudden onset of back pain feel better in just 2 weeks. About 8 in 10 people feel better by 6 weeks. CAUSES Some common causes of back pain include: Strain of the muscles or ligaments supporting the spine. Wear and tear (degeneration) of the spinal discs. Arthritis. Direct injury to the back. DIAGNOSIS Most of the time, the direct cause of low back pain is not known.However, back pain can be treated effectively even when the exact cause of the pain is unknown.Answering your caregiver's questions a bout your overall health and symptoms is one of the most accurate ways to make sure the cause of your pain is not dangerous. If your caregiver needs more information, he or she may order lab work or alissa ging tests (X-rays or MRIs).However, even if imaging tests show changes in your back, this usually does not require surgery. HOME CARE INSTRUCTIONS For many people, back pain returns.Since low back pain is rarely dangerous, it is often a condition that people can learn to manageon their own. Remain active. It is stressful on the back to sit or operating room specialist one place. Do not sit, drive, or operating room specialist one place for more than 30 minutes at a time. Take short walks on level surfaces as soon as p qu[place] allows.Try to increase the length of time you walk each day. Do not stay in bed.Resting more than 1 or 2 days can delay your recovery. Do not avoid exercise or work.Your body is made to move.It is not dangerous to be active, even though your back may hurt.Your back will likely heal faster if you return to being active before your pain is gone. Pay attention to your body when you bend and lift. Many people have less discomfortwhen lifting if they bend their knees, keep the load close to their bodies,and avoid twisting. Often, the mo st comfortable positions are those that put less stress on your recovering back. Find a comfortable position to sleep. Use a firm mattress and lie on your side with your knees slightly bent. If you lie on your back, put a pillow under your knees. Only take ehac-cly-xjsmxsn or prescription medicines as directed by your caregiver. Dmwd-onl-fabzcus medicines to reduce pain and inflammation are often the most helpful.Your caregiver may prescr fani muscle relaxant drugs.These medicines help dull your pain so you can more quickly return to your normal activities and healthy exercise. Put ice on the injured area. Put ice in a plastic bag. Place a towel between your skin and the bag. Leave the ice on for 15-20 minutes, 03-04 times a day for the first 2 to 3 days. After that, ice and heat may be alternated to reduce pain and spasms. Ask your caregiver about trying back exercises and gentle massage. This may be of some benefit. Avoid feeling anxious or stressed.Stress increases muscle tension and can worsen back pain.It is important to recognize when you are anxious or stressed and learn ways to manage it.Exercise is a great option. SEEK MEDICAL CARE IF: You have pain that is not relieved with rest or medicine. You have pain that does not improve in 1 week. You have new symptoms. You are generally not feeling well. SEEK IMMEDIATE MEDICAL CARE IF: You have pain that radiates from your back into your legs. You develop new bowel or bladder control problems. You have unusual weakness or numbness in your arms or legs. You develop nausea or vomiting. You develop abdominal pain. You feel faint. Document Released: 06/25/2006 Document Revised: 12/24/2012 Document Reviewed: 11/13/2011 ExitCare Patient Information 2015 [facility]. This information is not intended to replace advice given to you by your health care provider. Make sure you discuss any questions you have with your health care provider. No follow up information was provided. Extracted from: Title: right back pain Author: Ricardo Ricardo MD Date: 02/04/15 Impression and Plan Diagnosis Back pain, chronic (ICD9 724.5, Working, Medical). Neck pain (ICD9 723.1, Working, Medical). Right lumbar radiculitis (ICD9 724.4, Working, Medical). Plan: Tramadol prescribed for severe pain. I recommend frequent leg stretches and heat to your back. Avoid bending and lifting. You refused to allow me to write restrictions, due to concerns about l osing your job. I recommend PT. Followup with Dr. Field for further evaluation and treatment. Consider an epidural steroid injection in your back, due to the radicular nerve symptoms. , Stop smoking.. Orders Orders (Selected) Outpatient Orders Ordered Office Visit Level 4 Est 94271: Prescriptions Prescribed traMADol 50 mg oral tablet: 50 mg=1 tabs, Oral, q6hr, for 10 days, 40 tabs, 0 Refill(s). Dx/Order Association Plan: Diagnosis: Back pain, chronic Comment: Modified: Office Visit Level 4 Est 17537; 02/04/15 22:20:00 CDT, Back pain, chronic | Right lumbar radiculitis | Neck pain Diagnosis: Neck pain Comment: Modified: Office Visit Level 4 Est [id number]; 02/04/15 22:20:00 CDT, Back pain, chronic | Right lumbar radiculitis | Neck pain Diagnosis: Right lumbar radiculitis Comment: Modified: Office Visit Level 4 Est 20143; 02/04/15 22:20:00 CDT, Back pain, chronic | Right lumbar radiculitis | Neck pain Additional Orders: Comment: Ordered: traMADol 50 mg oral tablet,50 mg 1 tabs, Oral, q6hr, X 10 days, # 40 tabs, 0 Refill(s) End of Orders ."
--- OUTSIDE RECORDS SUMMARY | 2017-07-01 00:48 | External Medical Summary | Referral Summary ---
:1955 Author Organization [facility] [place] [address] Care Team Providers Name Role Phone Omkar Field Primary Care Physician Encounter VC Date(s): 04/13/15 - 04/13/15 [facility] [place] [id number] Discharge Diagnosis: Back pain, chronic Discharge Diagnosis: Spasm of back muscles Discharge Disposition: 01-Home or Self Care Attending Physician: Omkar Field DO Admitting Physician: Omkar Field DO Vital Signs Most recent to oldest [Reference Range]: 1 Temperature Tympanic [36.6-38.1 degC] 36.6 degC (04/13/15 1:18 PM) Peripheral Pulse Rate [60-100 bpm] 68 bpm (04/13/15 1:18 PM) Blood Pressure [90-140/60-90 mmHg] 155/78 mmHg *HI* (04/13/15 1:18 PM) Problem List Condition Effective Dates Status [...] needed for spasm, # 60 tabs, eRx: [id number], 1 tabs Oral BID,x30 days,PRN:as needed for spasm Start Date: 09/30/15 Status: Orderedferrous sulfate 325 mg (65 mg elemental iron) oral tablet See Instructions, 1 tabs Oral BID, # 60 tabs, 2 Refill(s), [facility]Rx: [facility], 1 tabs Oral BID Start [...] MOUTH TWICE DAILY, # 30 tabs, eRx: [facility],TAKE ONE-HALF TABLET BY MOUTH TWICE DAILY Start Date: 10/01/15 Status: Orderedpropranolol 10 mg oral tablet 5 mg 0.5 tabs, Oral, BID, # 30 tabs, 2 Refill(s), Pharmacy: [facility], 0.5 tabs Oral BID,x30 days [...] Visit Note Author: Omkar Field DO Date: 04/13/15 Assessment/Plan Back pain, chronic Pathophysiology of this presentation, and differential diagnosis, discussed in detail with the patient. All questions were answered. 1. History and clinical finding consistent with muscle spasms of both upper and lower back. 2. Physical therapy recommended. 3. Discontinue baclofen since it's not helping. 4. Cyclobenzaprine 10 mg twice a day for 1-2 weeks. 5. Continue with ibuprofen 800 mg 3 times a day. May add Tylenol at thousand milligrams every 8 hours as needed for pain not controlled by the above. 6. Follow-up after she's had 2-3 weeks of physical therapy. 7. Recommended transfer of records from her previous imaging of her back. Spasm of back muscles 1. As above Ordered: cyclobenzaprine, 10 mg 1 tabs, Oral, BID, as needed for spasm, # 30 tabs, 0 Refill(s), Pharmacy: [facility], 1 tabs Oral BID,PRN:as needed for spasm Office Visit Level 3 Est 41751
--- OUTSIDE RECORDS SUMMARY | 2017-07-01 00:48 | External Medical Summary | Referral Summary ---
:1955 Author Organization [facility] [place] [address] Care Team Providers Name Role Phone Omkar Field Primary Care Physician Encounter VC Date(s): 04/13/15 - 04/13/15 [facility] [place] [phone] Discharge Diagnosis: Back pain, chronic Discharge Diagnosis: [...] Active Medications cyclobenzaprine 10 mg oral tablet 10 mg 1 tabs, Oral, BID, as needed for spasm, # 30 tabs, 0 Refill(s), Pharmacy: [facility], 1 tabs Oral BID,PRN:as needed for spasm Start Date: 04/13/15 Stop Date: 05/14/15 Status: Orderedmagnesium oxide Oral, 0 Refill(s) Start Date: 03/12/15 Status: Orderedpotassium iodide mg, Oral, Daily, 0 Refill(s) Start Date: 03/12/15 Status: Orderedpropranolol 20 mg oral tablet 20 mg 1 tabs, Oral, BID, # 60 tabs, 0 Refill(s), Pharmacy: [facility], 1 tabs Oral BID Start Date: 03/12/15 Status: Ordered Results No data available for [...] spasm, # 30 tabs, 0 Refill(s), Pharmacy: [facility], 1 tabs Oral BID,PRN:as needed for spasm Office Visit Level 3 Est 41889
--- OUTSIDE RECORDS SUMMARY | 2017-07-01 00:48 | External Medical Summary ---
:1955 Author Organization [facility]. Summary purpose CCDA Sent to [facility] Chief Complaint and Reason for Visit Admit Diagnosis 1 DIZZYNESS Problem list No authorized problems tracked for continuity of care are available for this visit. Encounters No authorized problems tracked for encounter diagnoses are available for this visit. Medications No medications recorded for this patient visit Allergies, adverse reactions, alerts Allergen Category Ingredient Status Reaction Severity Onset Ceclor Drug Ceclor Active Ceclor Drug cefaclor Active clindamycin Drug clindamycin Active Immunizations No immunizations recorded for this patient visit Relevant diagnostic tests and/or laboratory data RESULTS CBC :10:00 Result Normal Range Units WBC 7.04 4.8-10.8 x103/mm3 Neutrophil % 61.2 50-70 % Lymph % 32.2 20-50 % Stewart % 4.7 1.0-9.0 % Eosinophil % 1.3 0-4 % Basophil % 0.6 0-2 % Neutrophil # 4.31 3.0-7.0 x103/mm3 Lymph # 2.27 1.0-4.0 x103/mm3 Stewart # 0.33 0.0-0.8 x103/mm3 Eosinophil # 0.09 0-0.5 x103/mm3 Basophil # 0.04 0-0.2 x103/mm3 RBC L 4.15 4.20-5.40 x103/mm3 HGB 12.8 12.0-16.0 g/dl HCT 38.1 37.0-47.0 % MCV 91.8 81-99 FL MCH 30.8 27.0-31.0 pg MCHC 33.6 32.0-36.0 g/dl RDW 12.6 12-15 % Platelet 232 150-400 x103/mm3 MPV H 10.3 6.0-10.0 FL Chemistry Group :10:00 Result Normal Range Units Sodium 137 134-145 mmol/L Potassium H 5.5 3.6-5.0 mmol/L Chloride 102 98-107 mmol/L CO2 L* 21 22-30 mmol/L Glucose 96 75-110 mg/dl BUN H 25 9-20 mg/dl Creatinine 1.30 0.8-1.7 mg/dl eGFR 42 ml/min. Total Protein 7.4 6.3-8.2 g/dl Albumin 4.1 3.5-5.0 g/dl Calcium 9.7 8.4-10.2 mg/dl Alk Phos 90 38-126 U/L AST 22 14-36 U/L ALT 27 11-66 U/L T Bili .5 0.2-1.3 mg/dl A/G Ratio 1.2 Ratio Special Chemistry Group [id number]:00 Result Normal Range Units Troponin I < 0.06 ng/ml NEGATIVE - 0.06-0.30 ng/ml INCONCLUSIVE - 0.31-0.64 ng/ml; Suggest Repeating in 2-4 hours POSITIVE - >0.64 ng/ml; Probable AMI TSH 2.13 0.50-6.00 uIU/mL History of procedures Procedure Code Code Type Description Date Performed Performing Physician 29908 CPT-4 EMERGENCY DEPT VISIT 01-16-2017 SAMANTHA ALFONSO J7030 CPT-4 INFUSION, NS, 1000 CC 01-16-2017 SAMANTHA ALFONSO 68932 CPT-4 ELECTROCARDIOGRAM, 01-16-2017 SAMANTHA ALFONSO TRACING 24334 CPT-4 COMPLETE CBC, 01-16-2017 SAMANTHA ALFONSO AUTOMATED 88122 CPT-4 COMPREHEN METABOLIC 01-16-2017 SAMANTHA ALFONSO PANEL 84414 CPT-4 ASSAY OF TROPONIN, 01-16-2017 SAMANTHA ALFONSO QUANT 01491 CPT-4 ASSAY THYROID STIM 01-16-2017 SAMANTHA ALFONSO HORMONE 74654 CPT-4 ROUTINE VENIPUNCTURE 01-16-2017 SAMANTHA ALFONSO Functional status Cognitive Status Finding Observation Time Level of Consciousne Alert [id number]:20 Oriented to Person Yes [id number]:[address] Yes [id number]:20 Oriented to Time Yes [id number]:20 Vital signs Type Value Date Respirations 18 03-49-131553:26 Pulse 87 [id number]:44 O2 Saturation 97% :44 Systolic Blood Press 139mm/HG :44 Diastolic Blood Pres 68mm/HG :44 Temperature (Fahr) 99.6Degrees :26 Height 72in :20 Weight 203LB :20 Social history Type Value Smoking Status CURRENT EVERY DAY SMOKER Treatment Plan No treatment plan text is available for this visit. Hospital discharge instructions No discharge instruction text is available for this visit.
--- OUTSIDE RECORDS SUMMARY | 2017-07-01 00:48 | External Medical Summary | Referral Summary ---
:1955 Author Organization [facility] [place] [address] Care Team Providers Name Role Phone Omkar Field Primary Care Physician Encounter VC Date(s): 07/20/16 - 07/20/16 [facility] [place] [phone] [place] Discharge Diagnosis: Pain, upper back Discharge Diagnosis: Chest pain Discharge Diagnosis: Anemia, iron deficiency Discharge Disposition: 01-Home or Self Care Attending Physician: Omkar Field DO Admitting Physician: Omkar Field DO Vital Signs Most recent to oldest [Reference Range]: 1 Peripheral Pulse Rate [60-100 bpm] 75 bpm (07/20/16 1:20 PM) Respiratory Rate [14-20 br/min] 18 br/min (07/20/16 1:20 PM) Blood Pressure [90-140/60-90 mmHg] 142/110 mmHg *HI* (07/20/16 1:20 PM) SpO2 98 % [...] # 30 tabs, 0 Refill(s), Pharmacy : [facility], 1 tabs Oral q6hr,PRN:as needed for spasm Start Date: 07/20/16 Stop Date: 2/12/17 Status: Orderedibuprofen 800 mg, Oral, q8hr, as needed for pain, 0 Refill(s) Start Date: 04/20/16 Status: Orderedlisinopril 20 mg oral tablet 20 mg 1 tabs, Oral, Daily, # 30 tabs, 0 Refill(s), Pharmacy: [facility] Start Date: 07/20/16 Status: Orderedpropranolol 10 mg oral tablet 10 mg 1 tabs, Oral, BID, # 60 tabs, 1 Refill(s), Pharmacy: [facility], 1 tabs Oral BID Start Date: 07/05/16 Status: Ordered Results Hematology Most recent to oldest [Reference Range]: 1 WBC [4.8-10.8 10*3/uL] 7.1 10*3/uL (07/20/16 2:45 PM) RBC [4.00-5.20] 3.96 *LOW* (07/20/16 2:45 PM) Hgb [12.0-16.0 gm/dL] 10.0 gm/dL *LOW* (07/20/16 2:45 PM) Hct [37.0-47.0 %] 33.2 % *LOW* (07/20/16 2:45 PM) MCV [82.0-99.0 fL] 83.8 fL (07/20/16 2:45 PM) MCH [27.0-32.0 pg] 25.3 pg *LOW* (07/20/16 2:45 PM) MCHC [32.0-36.0 gm/dL] 30.1 gm/dL *LOW* (07/20/16 2:45 PM) RDW [11.5-14.5 %] 13.1 % (07/20/16 2:45 PM) Platelet [150-400 10*3/uL] 301 10*3/uL (07/20/16 2:45 PM) MPV [8.8-14.8 fL] 10.8 fL (07/20/16 2:45 PM) Immature Granulocytes [0.0-1.0 %] 0.0 % (07/20/16 2:45 PM) Neutrophils [51-75 %] 55 % (07/20/16 2:45 PM) Lymphocytes [20-46 %] 38 % (07/20/16 2:45 PM) Monocytes [4-11 %] 5 % (07/20/16 2:45 PM) Eosinophils [0-4 %] 1 % (07/20/16 2:45 PM) Basophils [0-2 %] 1 % (07/20/16 2:45 PM) Neutro Absolute [1.90-7.00] 3.87 (07/20/16 2:45 PM) Lymph Absolute [0.80-3.30] 2.72 (07/20/16 2:45 PM) Ross Absolute [0.30-1.00] 0.37 (07/20/16 2:45 PM) Eos Absolute [0.00-0.50] 0.09 (07/20/16 2:45 PM) Baso Absolute [0.00-0.20] 0.04 (07/20/16 2:45 PM) Chemistry Most recent to oldest [Reference Range]: 1 Sodium Lvl [135-144 mEq/L] 143 mEq/L (07/20/16 2:45 PM) Potassium Lvl [3.5-5.2 mEq/L] 3.9 mEq/L (07/20/16 2:45 PM) Chloride [99-111 mEq/L] 110 mEq/L (07/20/16 2:45 PM) CO2 [22-31 mEq/L] 25 mEq/L (07/20/16 2:45 PM) AGAP [3-20] 8 (07/20/16 2:45 PM) BUN [10-20 mg/dL] 15 mg/dL (07/20/16 2:45 PM) Glucose Lvl [70-99 mg/dL] 91 mg/dL (07/20/16 2:45 PM) Creatinine Lvl [0.57-1.11 mg/dL] 0.63 mg/dL (07/20/16 2:45 PM) eGFR [>60 mL/min] >60 mL/min 1 (07/20/16 2:45 PM) Calcium Lvl [8.9-10.5 mg/dL] 9.3 mg/dL (07/20/16 2:45 PM) Albumin Lvl [3.5-5.0 gm/dL] 4.0 gm/dL (07/20/16 2:45 PM) Total Protein [6.1-7.7 gm/dL] 6.6 gm/dL (07/20/16 2:45 PM) Globulin [1.8-4.0 gm/dL] 2.6 gm/dL (07/20/16 2:45 PM) ALT [0-55 U/L] 15 U/L (07/20/16 2:45 PM) AST [5-34 U/L] 13 U/L (07/20/16 2:45 PM) Alk Phos [40-150 U/L] 92 U/L (07/20/16 2:45 PM) Bili Total [0.2-1.2 mg/dL] 0.3 mg/dL (07/20/16 2:45 PM) Chol [0-199 mg/dL] 244 mg/dL *HI* (07/20/16 2:45 PM) Trig [0-149 mg/dL] 275 mg/dL *HI* (07/20/16 2:45 PM) HDL [40-84 mg/dL] 45 mg/dL (07/20/16 2:45 PM) LDL [0-130 mg/dL] 144 mg/dL *HI* (07/20/16 2:45 PM) VLDL Cholesterol [0-28 mg/dL] 55 mg/dL *HI* (07/20/16 2:45 PM) Cardiac Risk [0.0-5.0] 5.4 *HI* (07/20/16 2:45 PM) TSH with Reflex Free T4 [0.35-4.94] 0.95 (07/20/16 2:45 PM) 1Result Comment: Multiply eGFR [...] Lipid Panel Office Visit Level 4 Est 57877 TSH with Reflex Free T4 Chest pain [...] lungs for the history of greater than 52-[id number] history and age greater than 55. 7. Follow-up in 2 weeks for reevaluation, sooner if worsening symptoms. Ordered: CBC w/ Differential Comprehensive Metabolic Panel Lipid Panel Office Visit Level 4 Est 41787 TSH with Reflex Free T4 Pain, upper back 1. Her upper back pain is chronic. This is muscular in nature. 2. Continue with heat compressions as previous. 3. Continue with stretching exercises. 4. Continue with muscle relaxers. Ordered: CBC w/ Differential Comprehensive Metabolic Panel Lipid Panel Office Visit Level 4 Est 52292 TSH with Reflex Free T4
--- OUTSIDE RECORDS SUMMARY | 2017-07-01 00:48 | External Medical Summary | Referral Summary ---
:1955 Author Organization [facility] [place] [address] Care Team Providers Name Role Phone Omkar Field Primary Care Physician Encounter VC Date(s): 03/12/15 - 03/12/15 [facility] [place] [phone] [place] Discharge Diagnosis: Tobacco abuse Discharge Diagnosis: Bilateral low back pain Discharge Diagnosis: Social anxiety disorder Discharge Diagnosis: Back pain, chronic Discharge Disposition: 01-Home or Self Care Attending Physician: Omkar Field DO Admitting Physician: Omkar Field DO Vital Signs Most recent to oldest [Reference Range]: 1 Temperature Tympanic [36.6-38.1 degC] 36.0 degC *LOW* (03/12/15 1:13 PM) Peripheral Pulse Rate [60-100 bpm] 69 bpm (03/12/15 1:13 PM) Blood Pressure [90-140/60-90 mmHg] 148/80 mmHg *HI* (03/12/15 1:13 PM) Problem List Condition Effective Dates Status [...] needed for spasm, # 60 tabs, eRx: [facility], 1 tabs Oral BID,x30 days,PRN:as needed for spasm Start Date: 08/20/15 Status: Orderedferrous sulfate 325 mg (65 mg elemental iron) oral tablet See Instructions, 1 tabs Oral BID, # 60 tabs, 2 Refill(s), eRx: [facility], 1 tabs Oral BID Start Date: 07/22/15 Status: Orderedmagnesium oxide Oral, 0 Refill(s) Start Date: 03/12/15 Status: Orderedpotassium iodide mg, Oral, Daily, 0 Refill(s) Start Date: 03/12/15 Status: Orderedpropranolol 10 mg oral tablet 5 mg 0.5 tabs, Oral, BID, # 30 tabs, 2 Refill(s), Pharmacy: [facility], 0.5 tabs Oral BID,x30 days [...] Visit Note Author: Omkar Field DO Date: 03/12/15 Assessment/Plan Back pain, chronic 1. Patient was advised that I do not do chronic pain management, if she is needing to be on chronic pain medication then she'll need referral to a pain specialist. Alternatively , she may seek care from a provider who is able to manage her pain treatment. Patient voiced understanding. 2. Requested transfer for records for review if she is wanting to stay in my clinic. 3. Will refer to physical therapy for evaluation and treatment of her back pain given that she's had good results with this in the past. 4. Stretching exercises in warm compression recommended. 5. Continue with the current muscle relaxer that she is using. 6. Follow-up in 2-4 weeks for reevaluation. Bilateral low back pain As above Ordered: propranolol, 20 mg 1 tabs, Oral, BID, # 60 tabs, 0 Refill(s), Pharmacy: [facility], 1 tabs Oral BID Office Visit Level 4 Est 67601 Social anxiety disorder Pathophysiology of this presentation, and differential diagnosis, discussed in detail with the patient. All questions were answered. 1. We'll start her on propranolol 20 mg twice a day. 2. Follow-up in 2-4 weeks for reevaluation. Ordered: propranolol, 20 mg 1 tabs, Oral, BID, # 60 tabs, 0 Refill(s), Pharmacy: [facility], 1 tabs Oral BID Office Visit Level 4 Est 21377 Tobacco abuse Tobacco cessation recommended.
--- OUTSIDE RECORDS SUMMARY | 2017-07-01 00:48 | External Medical Summary | Referral Summary ---
:1955 Author Organization [facility] [place] [phone] Care Team Providers Name Role Phone Omkar Field Primary Care Physician Encounter VC Date(s): 06/14/15 - 06/14/15 [facility] [place] [phone] [place] Discharge Diagnosis: Acute nasopharyngitis (common cold) Discharge Diagnosis: Premature contractions, supraventricular Discharge Diagnosis: Generalized anxiety disorder Discharge Diagnosis: Heart palpitations Discharge Diagnosis: Current tobacco use Discharge Diagnosis: Pain, upper back Discharge Diagnosis: Discitis of lumbosacral region Discharge Disposition: -Home or Self Care Attending Physician: Omkar Field DO Admitting Physician: Omkar Field DO Vital Signs Most recent to oldest [Reference Range]: 1 Temperature Tympanic [36.6-38.1 degC] 36.6 degC (06/14/15 1:11 PM) Peripheral Pulse Rate [60-100 bpm] 60 bpm (06/14/15 1:11 PM) Blood Pressure [90-140/60-90 mmHg] 150/90 mmHg *HI* (06/14/15 1:11 PM) Problem List Condition Effective Dates Status Health Status Informant Back pain, chronic(Confirmed) Active Neck pain(Confirmed) Active Obesity(Confirmed) Active patient Right lumbar radiculitis(Confirmed) Active Tobacco user(Confirmed) Active patient Allergies, Adverse Reactions, Alerts Substance Reaction Severity Status cefaclor Trouble Breathing Active clindamycin Active Vistaril Anxiety Active Medications cyclobenzaprine 10 mg oral tablet 10 mg 1 tabs, Oral, BID, as needed for spasm, X 30 days, # 60 tabs, 0 Refill(s) , Pharmacy: [facility], 1 tabs Oral BID,x30 days,PRN:as needed for spasm Start Date: 06/14/15 Stop Date: 07/14/15 Status: Orderedmagnesium oxide Oral, 0 Refill(s) Start Date: 03/12/15 Status: Orderedpotassium iodide mg, Oral, Daily, 0 Refill(s) Start Date: 03/12/15 Status: Orderedpropranolol 10 mg oral tablet 5 mg 0.5 tabs, Oral, BID, # 30 tabs, 2 Refill(s), Pharmacy: [facility], 0.5 tabs Oral BID,x30 days Start Date: 06/14/15 Stop Date: 09/12/15 Status: Ordered Results Hematology Most recent to oldest [Reference Range]: 1 WBC [4.8-10.8 10*3/uL] 4.8 10*3/uL (06/14/15 2:18 PM) RBC [4.00-5.20] 4.77 (06/14/15 2:18 PM) Hgb [12.0-16.0 gm/dL] 9.0 gm/dL *LOW* (06/14/15 2:18 PM) Hct [37.0-47.0 %] 31.6 % *LOW* (06/14/15 2:18 PM) MCV [82.0-99.0 fL] 66.2 fL *LOW* (06/14/15 2:18 PM) MCH [27.0-32.0 pg] 18.9 pg *LOW* (06/14/15 2:18 PM) MCHC [32.0-36.0 gm/dL] 28.5 gm/dL *LOW* (06/14/15 2:18 PM) RDW [11.5-14.5 %] 20.6 % *HI* (06/14/15 2:18 PM) Platelet [150-400 10*3/uL] 322 10*3/uL (06/14/15 2:18 PM) MPV [8.8-14.8 fL] 10.6 fL (06/14/15 2:18 PM) Immature Granulocytes [0.0-1.0 %] 0.2 % (06/14/15 2:18 PM) Neutrophils [51-75 %] 64 % (06/14/15 2:18 PM) Lymphocytes [20-46 %] 28 % (06/14/15 2:18 PM) Monocytes [4-11 %] 5 % (06/14/15 2:18 PM) Eosinophils [0-4 %] 2 % (06/14/15 2:18 PM) Basophils [0-2 %] 1 % (06/14/15 2:18 PM) Neutro Absolute [1.90-7.00 10*3] 3.09 10*3 (06/14/15 2:18 PM) Lymph Absolute [0.80-3.30 10*3] 1.35 10*3 (06/14/15 2:18 PM) [place] Absolute [0.30-1.00 10*3] 0.26 10*3 *LOW* (06/14/15 2:18 PM) Eos Absolute [0.00-0.50 10*3] 0.08 10*3 (06/14/15 2:18 PM) Baso Absolute [0.00-0.20 10*3] 0.06 10*3 (06/14/15 2:18 PM) Microcyte Present *ABN* (06/14/15 2:18 PM) Chemistry Most recent to oldest [Reference Range]: 1 Sodium Lvl [135-144 mEq/L] 141 mEq/L (06/14/15 2:18 PM) Potassium Lvl [3.5-5.2 mEq/L] 4.3 mEq/L (06/14/15 2:18 PM) Chloride [99-111 mEq/L] 108 mEq/L (06/14/15 2:18 PM) CO2 [22-31 mEq/L] 24 mEq/L (06/14/15 2:18 PM) AGAP [3-20] 9 (06/14/15 2:18 PM) BUN [10-20 mg/dL] 7 mg/dL *LOW* (06/14/15 2:18 PM) Glucose Lvl [70-99 mg/dL] 103 mg/dL *HI* (06/14/15 2:18 PM) Creatinine Lvl [0.57-1.11 mg/dL] 0.66 mg/dL (06/14/15 2:18 PM) eGFR [>60 mL/min] >60 mL/min 1 (06/14/15 2:18 PM) Calcium Lvl [8.9-10.5 mg/dL] 9.2 mg/dL (06/14/15 2:18 PM) Albumin Lvl [3.5-5.0 gm/dL] 4.0 gm/dL (06/14/15 2:18 PM) Total Protein [6.4-8.3 gm/dL] 6.8 gm/dL (06/14/15 2:18 PM) Globulin [1.8-4.0 gm/dL] 2.8 gm/dL (06/14/15 2:18 PM) ALT [0-55 U/L] 12 U/L (06/14/15 2:18 PM) AST [5-34 U/L] 14 U/L (06/14/15 2:18 PM) Alk Phos [40-150 U/L] 100 U/L (06/14/15 2:18 PM) Bili Total [0.2-1.2 mg/dL] 0.3 mg/dL (06/14/15 2:18 PM) Magnesium Lvl [1.6-2.6 mg/dL] 2.4 mg/dL (06/14/15 2:18 PM) TSH with Reflex Free T4 [0.35-4.94] 1.15 (06/14/15 2:18 PM) 1Result Comment: Multiply eGFR results by 1.21 for race. Immunizations No data available for this section Procedures No data available for this section Social History Social History Type Response Smoking Status Current every day smoker; Tobacco use per day: More than 1 pack Assessment and Plan Extracted from: Title: Multiple complaints visit Author: Omkar Field DO Date: 06/14/15 Assessment/Plan Acute nasopharyngitis (common cold) 1. This appears to be viral upper respiratory tract infection. 2. Continue with supportive and conservative care. 3. Follow-up if worsening presentation. Ordered: Office Visit Level 5 Est 62012 Current tobacco use 1. Tobacco cessation recommended, she voiced understanding but is not interested. Ordered: Smoking and tobacco use cessation counseling visit 3 to 10 minutes 38556 Discitis of lumbosacral region Pathophysiology of this presentation, and differential diagnosis, discussed in detail with the patient. All questions were answered. 1. Review of her MRI from [facility] from 2009 indicates that she has a small annular tear at L5-S1 however no gross deformity appreciated. 2. At this time she is asymptomatic with regards to her lower back, at this time no further workup is needed. Ordered: Office Visit Level 5 Est 51256 Generalized anxiety disorder Ordered: Smoking and tobacco use cessation counseling visit 3 to 10 minutes 65155 Heart palpitations 1. Continue with propranolol 5 mg twice a day. We will hold off on considering benzodiazepines. If the propranolol does not help or she cannot tolerate the medication then we plan on considering Celexa or Lexapro. Patient voiced understanding. Ordered: CBC w/ Differential Comprehensive Metabolic Panel Magnesium Level TSH with Reflex Free T4 Pain, upper back Continue with physical therapy. Ordered: Office Visit Level 5 Est 24981 Premature contractions, supraventricular EKG done today was for normal sinus rhythm with a rate of 84. She has occasional premature supraventricular contraction otherwise normal. Ordered: Office Visit Level 5 Est 18585 Orders: cyclobenzaprine, 10 mg 1 tabs, Oral, BID, as needed for spasm, X 30 days, # 60 tabs, 0 Refill(s), Pharmacy: [facility], 1 tabs Oral BID, x30 days,PRN:as needed for spasm propranolol, 5 mg 0.5 tabs, Oral, BID, # 30 tabs, 2 Refill(s), Pharmacy: [facility], 0.5 tabs Oral BID,x30 days
--- OUTSIDE RECORDS SUMMARY | 2017-07-01 00:48 | External Medical Summary | Continuity of Care Document ---
:1955 Author Organization [facility] Allergies There is no data. Medications There is no data. Problems There is no data. Procedures There is no data. Results There is no data. Encounters ACCT Visit Discharge Status Pt. Type Provider Facility Loc./Unit Complaint No. Date/Time [id number] 11/14/2012 11/14/2012 DIS Emergency [facility], Mikhail CALLOWAY [id number] 15:56:00 16:59:00 [facility]
--- OUTSIDE RECORDS SUMMARY | 2017-07-01 00:48 | External Medical Summary | Referral Summary ---
:1955 Author Organization [facility] [place] [address] Care Team Providers Name Role Phone Omkar Field Primary Care Physician Encounter VC Date(s): 10/13/15 - 10/13/15 [facility] [place] [phone] [place] Discharge Disposition: 01-Home or Self Care Attending Physician: Omkar Field DO Admitting Physician: Omkar Field DO Vital Signs Most recent to oldest [Reference Range]: 1 Temperature Tympanic [36.6-38.1 degC] 38 degC (10/13/15 4:36 PM) Peripheral Pulse Rate [60-100 bpm] 96 bpm (10/13/15 4:36 PM) Blood Pressure [90-140/60-90 mmHg] 122/80 mmHg (10/13/15 4:36 PM) SpO2 97 % (10/13/15 4:36 PM) Problem List Condition Effective Dates Status Health Status Informant Back pain, chronic(Confirmed) Active Neck pain(Confirmed) Active Obesity(Confirmed) Active patient Right lumbar radiculitis(Confirmed) Active Tobacco user(Confirmed) Active patient Allergies, Adverse Reactions, Alerts Substance Reaction Severity Status cefaclor Trouble Breathing Active [id number] Active clindamycin Active Rocephin Active Vistaril Anxiety Active 1aka Rocephin Medications Augmentin 875 mg-125 mg oral tablet 1 tabs, Oral, q12hr, X 10 days, # 20 tabs, 0 Refill(s), Pharmacy: [facility] Start Date: 10/13/15 Stop Date: 10/23/15 Status: Orderedcyclobenzaprine 10 mg oral tablet See Instructions, 1 tabs Oral BID,x30 days,PRN:as needed for spasm, # 60 tabs, eRx: [facility], 1 tabs Oral BID,x30 days,PRN:as needed for spasm Start Date: 09/30/15 Status: Orderedferrous sulfate 325 mg (65 mg elemental iron) oral tablet See Instructions, 1 tabs Oral BID, # 60 tabs, 2 Refill(s), eRx: [facility], 1 tabs Oral BID [...] MOUTH TWICE DAILY, # 30 tabs, eRx: [facility],TAKE ONE-HALF TABLET BY MOUTH TWICE DAILY Start Date: 10/01/15 Status: Orderedpropranolol 10 mg oral tablet 5 mg 0.5 tabs, Oral, BID, # 30 tabs, 2 Refill(s), Pharmacy: [facility], 0.5 tabs Oral BID,x30 days [...] Visit Note Author: Omkar Field DO Date: 10/13/15 Assessment/Plan Bacterial pharyngitis 1. Clinical finding consistent with bacterial pharyngitis. 2. Since she is still having significant erythema and was complaining of concentrated urine with early signs of dehydration we were going to give her an infusion with Rocephin. The mixture was prepared and infusion was started when we noticed that she was allergic to second generation cephalosporin. The infusion was discontinued immediately. The patient was observed for an hour after discontinuation and did not have any signs of allergic reaction. She was dismissed to home with instructions to follow-up in the ER if development of allergic reaction. 3. She was started on Augmentin one tablet twice a day for 10 days. Ordered: Office Visit Level 4 Est 41102 Orders: amoxicillin-clavulanate, 1 tabs, Oral, q12hr, X 10 days, # 20 tabs, 0 Refill(s), Pharmacy: [facility]
[2017-07-01] MEDS ORDERED: ONDANSETRON 4 MG/2 ML INJECTION IVP ONE (00:51)
[2017-07-01] MEDS ORDERED: ALBUTEROL 2.5mg/3ml (0.083%) NEB AEROSOL ONE (00:51)
[2017-07-01] MEDS ORDERED: NS 1,000 ML IV ONE (00:52)
[2017-07-01] MEDS ORDERED: ACETAMINOPHEN 500 MG TABLET PO ONE (00:52)
--- NOTE | 2017-07-01 00:52 | Emergency Department Report ---
Fever HPI - General Stated Complaint: fever, headache, nauseated Time Seen by Provider: 07/01/17 00:32 Source: patient Mode of arrival: ambulatory Limitations: no limitations - History of Present Illness HPI Narrative: Fever, cough, nausea, body aches, fatigue, and headache 24 hours plus. Patient used Tylenol around 11, but without relief decided come to the ER. Patient also feels difficulty breathing, she tried using her grandsons albuterol inhaler, taking 2 puffs, without improvement. Patient admits she has had irregular rapid pulse in the past, that her primary physician, Dr. Field, as in the past felt is due to her anxiety. Propranolol has kept the symptoms under control. Patient admits she has had several episodes of tachycardic palpitations, but by the time she gets to the doctor's office they have resolved. Patient has not seen a graphics specialist yet in consultation as she has been counseled to do by her primary physician. - Related Data Home Medications Medication Instructions Recorded Confirmed Propranolol HCl 10 mg PO BID #0 10/12/15 07/01/17 Ibuprofen 600 mg PO Q6H PRN #0 06/23/16 07/01/17 Ferrous Sulfate 325 mg PO BIDWM #0 10/07/16 07/01/17 Allergies Allergy/AdvReac Type Severity Reaction Status Date / Time cefaclor Allergy Unknown DYSPNEA Verified 10/07/16 20:24 clindamycin Allergy Unknown Verified 10/07/16 20:24 hydroxyzine Allergy Unknown Verified 10/07/16 20:24 povidone-iodine Allergy Unknown Verified 10/07/16 20:24 Review of Systems All systems: reviewed and negative except as stated PFSH Patient Stated Medical History Cataracts Yes Macular Degeneration Yes: "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 [place] tooth extraction. Left carpal tunnel repair. Bilateral 1st rib removal - Social History Smoking status: Never smoker Substance use type: does not use Alcohol intake frequency: does not drink Physical Exam - Limitations Limitations: no limitations - General General appearance: alert, other (vision appears moderately ill) - Normal Exams: Head:: Normocephalic without trauma Eyes:: Pupils are PERRLA w/ EOMI, No scleral icterus, irritation, or foreign bodies noted ENMT:: No facial trauma, nasal exudates, pharyngeal erythema, or exudates are noted Neck:: Full range of motion, without adenopathy, JVD, bruits or thyromegaly Abdomen:: Bowel sounds positive, soft, non-tender, non-distended, no hepatosplenomegaly, masses or bruits noted Lymphatic:: No lymphadenopathy, or lymphedema noted Musculoskeletal:: No tenderness, or deformity noted, good range of motion, all extremities Integumentary:: No rashes, hives, or bruising noted, hair and nails, without abnormality Neurological:: Patient is alert, and oriented, cranial nerves, motor/sensory/ cerebellar, exams w/o gross deficits, to observation Psychiatric:: Patient exhibits, appropriate attention, emotion and affect - Chest Chest inspection: Present: normal inspection, symmetric chest wall rise. Absent : tenderness - Respiratory Respiratory exam: Present: wheezes. Absent: normal lung sounds bilaterally ( breath sounds bilaterally, in expiratory wheeze, and fine rhonchi on expiration on the right), respiratory distress, stridor, accessory muscle use, prolonged expiratory phase - Cardiovascular Cardiovascular exam: Present: other (irregularly irregular tachycardia) Course Vital Signs Temperature 100.0 F 07/01/17 00:38 Pulse Rate 123 H 07/01/17 00:38 Respiratory Rate 22 07/01/17 00:38 Blood Pressure 137/77 07/01/17 00:38 Pulse Oximetry 91 07/01/17 00:38 Temperature 98.6 F 07/01/17 02:30 Pulse Rate 82 07/01/17 02:30 Respiratory Rate 18 07/01/17 02:30 Blood Pressure 106/69 07/01/17 02:30 Pulse Oximetry 94 07/01/17 02:30 Fever - [facility] Narrative Medical decision making narrative: His vital signs showed elevated pulse, irregularly tachycardic, blood pressure is normal, O2 saturation borderline at 90-91 on room air. Patient placed on 2 L nasal cannula EKG shows atrial flutter with RVR at a rate of 1:30 to 140. - Patient given Cardizem 20 mg IV - initial rate control in the 90s Patient given 1 L normal saline IV fluid bolus, Zofran for nausea, Tylenol to help with aches and pains, and albuterol nebulized 1 - CBC - normal CMP - normal CXR - right middle lobe consolidation Influenza - influenza a positive After 1 L normal saline and Cardizem IV, patient's rate was controlled, and she converted to normal sinus rhythm. Case is discussed with Dr. Cooper, we will admit the patient for observation , IV fluids, respiratory treatments, and Tamiflu. - Lab Data Result diagrams: 07/01/17 01:08 07/01/17 01:08 Lab Results 07/01/17 07/01/17 07/01/17 Range/Units 01:08 01:08 01:35 WBC 4.4 L (4.5-11.0) T/MM3 RBC 4.10 (4.00-5.20) M/MM3 Hgb 13.1 (12-16) GM/DL Hct 39.8 (36-46) % MCV 97.1 (80-100) UM3 MCH 32.0 (26-34) UUG MCHC 32.9 (31-37) GM/DL RDW Std Deviation 47.5 (36.9-50.2) FL Plt Count 138 (130-400) T/MM3 MPV 10.8 (9.4-12.4) UM3 Immature Gran % (Auto) 0.2 (0.0-0.5) % Neut % (Auto) 83.1 H (33-66) % Lymph % (Auto) 10.6 L (23-45) % [place] % (Auto) 5.4 (0-9.0) % Eos % (Auto) 0.2 (0-4) % Baso % (Auto) 0.5 (0-2) % Neut # (Auto) 3.7 (1.8-7.7) T/MM3 Lymph # (Auto) 0.5 L (1-4.8) T/MM3 [place] # (Auto) 0.2 (0-0.8) T/MM3 Eos # (Auto) 0.0 (0-0.5) T/MM3 Baso # (Auto) 0.0 (0-0.2) T/MM3 Abs Immat Gran (auto) 0.01 (0.00-0.03) T/MM3 Turbidity < 20 (0-20) Sodium 137 (134-144) MEQ/L Potassium 4.3 (3.6-5) MEQ/L Chloride 104 (98-107) MEQ/L Carbon Dioxide 23 (22-30) MEQ/L Anion Gap 10 (5-15) MEQ/L BUN 9.0 (7-17) MG/DL Creatinine 0.7 (0.7-1.2) MG/DL GFR Calculation 86 BUN/Creatinine Ratio 13 (6-26) RATIO Glucose 113 H (65-110) MG/DL Calculated Osmolality 264 (261-280) MOSM/KG Calcium 9.1 (8.4-10.2) MG/DL Total Bilirubin 1.10 (0.20-1.30) MG/DL Conjugated Bilirubin 0.00 (0.00-0.30) MG/DL Unconjugated Bilirubin 0.50 (0.00-1.1) MG/DL Icterus Index < 2 (0-7) AST 35 (14-36) U/L ALT 29 (9-52) U/L Alkaline Phosphatase 76 (38-126) U/L Total Protein 7.4 (6.3-8.2) G/DL Albumin 4.0 (3.5-5.0) G/DL Globulin 3.4 (2.4-3.6) G/DL Albumin/Globulin Ratio 1.2 (1.1-2.2) RATIO Specimen Hemolysis 129 H (0-25) Influenza Type A (PCR) Positive A (Negative) Influenza Type B (PCR) Negative (Negative) Critical Care Time Critical Care Time: Yes Total Critical Care Time: 35 Attestation: She required IV fluid therapy, oxygen as well as breathing treatments for hypoxemia, and extensive diagnostics and medications for difficulty breathing, atrial fibrillation with rapid ventricular rate, Disposition Clinical Impression: Influenza A Disposition: 02 To [facility] Condition: Improved Prescriptions: No Action Ferrous Sulfate 325 mg PO BIDWM #0 Propranolol HCl 10 mg PO BID #0 Ibuprofen 600 mg PO Q6H PRN #0 PRN Reason: PAIN Referrals: Omkar Field DO [Family Provider] - - Seen By: physician
[2017-07-01] MEDS ORDERED: DiltiaZEM 25 MG/5 ML INJECTION IVP ONE (01:05)
[2017-07-01] MEDS: SALINE FLUSH 10ml SYRINGE IVF PRN (01:14)
[2017-07-01] MEDS ORDERED: METOPROLOL 5mg/5ml INJECTION IVP SCH (01:15)
[2017-07-01] MEDS ORDERED: LEVOFLOXACIN PB 750 MG/150 ML BAG IV SCH (03:15)
--- NOTE | 2017-07-01 03:39 | History & Physical Report ---
History of Present Illness Date: 07/01/17 Chief complaint: cough, dizziness HPI: 61-year-old white female presents to the emergency room with cough and dizziness and heart palpitations. Her illness began on Sunday, cough congestion and low-grade fever and muscle aches. Tonight she got quite short of breath and couldn't catch her breath and felt panicky. When evaluated in the emergency room heart rate was quite rapid and she was found to be in atrial flutter. She received an IV bolus of Cardizem 20 mg, within 30 minutes she had converted back to sinus rhythm. She was however noted to be hypoxic, and wheezing. She received an albuterol breathing treatments and this improved the wheezing but not the hypoxia. She does smoke between 1/2-2 packs per day, but doesn't typically use an albuterol treatment etc. She has had previous episodes of palpitations, and was taking propranolol which did seem to help. She's not had a previous cardiac evaluation. She didn't take her dose of propranolol this evening because of being in the hospital. Review of Systems All systems PM: 10-point ROS was reviewed, no additional remarkable complaints except Past Medical History Patient Stated Medical History Cataracts Yes Macular Degeneration Yes: "MACULAR HOLE IN LEFT EYE" Other HEENT LEGALLY BLIND Cardiac Arrhythmia Yes Hypertension Yes Pneumonia Yes Anemia Yes Surgical History: Hysterectomy. [place] tooth extraction. Left carpal tunnel repair. Bilateral 1st rib removal Family History Updates: Who at age 93 of old age mom at age 74 from complications of diabetes with kidney and heart disease - Social History Smoking status: Current every day smoker (1/2-2 packs per day since age 21) Packs per day: 2 Packs-years: 62 Time spent discussing smoking cessation with patient: 3 to 10 minutes (she is not yet ready to quit she's not interested in [place] that she had a friend that had homicidal ideations) Alcohol intake: current Alcohol intake frequency: a few times a week (she may have 2-3 drinks per session) Housing: house Current occupational status: employed (c) 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 [employer] Medications Home Medications Medication Instructions Recorded Confirmed Type Propranolol HCl 10 mg PO BID #0 10/12/15 07/01/17 History Ibuprofen 600 mg PO Q6H PRN #0 06/23/16 07/01/17 History Ferrous Sulfate 325 mg PO BIDWM #0 10/07/16 07/01/17 History Allergies Allergy/AdvReac Type Severity Reaction Status Date / Time cefaclor Allergy Unknown DYSPNEA Verified 07/01/17 03:35 clindamycin Allergy Unknown Verified 07/01/17 03:35 hydroxyzine Allergy Unknown Verified 07/01/17 03:35 povidone-iodine Allergy Unknown Verified 07/01/17 03:35 Exam Vital Signs: Temperature 98.6 F 07/01/17 02:30 Pulse Rate 82 07/01/17 02:30 Respiratory Rate 18 07/01/17 02:30 Blood Pressure 106/69 07/01/17 02:30 Pulse Oximetry 94 07/01/17 02:30 Height/Weight/BMI: Height 1.57 m Weight 96.3 kg Comments: in general she is quite pleasant and she is in no obvious distress alert and oriented 3 She appears mildly ill She is wearing nasal cannula oxygen Her lungs are diminished bilaterally she does have some mild wheezing with cough Cardiovascular is regular without murmur gallop or rub Abdomen is soft [id number] Extremities no edema Results - Labs CBC & Chem 7: 07/01/17 01:08 07/01/17 01:08 - ECG Data Tracing #1 atrial flutter noted rate 117 - Imaging and Cardiology Chest x-ray Status: image reviewed by me ( possible right perihilar infiltrate, I see anything there, the emergency room physician thought he did) Assessment and Plan (1) Influenza A Current visit: Yes Status: Acute (2) Atrial flutter Current visit: Yes Status: Acute (3) Tobacco use disorder Current visit: Yes Status: Acute Assessment and Plan: provide Tamiflu, supportive care with oxygen, inhaled bronchodilators. I don't think she needs IV steroids and oral steroids. At this time I don't think that antibiotics are indicated either. Appears to be a viral syndrome that probably led to her having some atrial flutter. Her heart rate was not fast, I started on some cardioselective beta-alexey instead of the propranolol. Hopefully this is well-tolerated. We'll observe her tonight or any further atrial flutter and try and get her on room air. We'll order TSH and a pro-calcitonin as well At some point she'll need an echocardiogram and perhaps telemetry monitoring on ambulatory basis. - Physician Narrative Narrative: Date: 07/01/17 Time: 334 Hospital Course Summary Disclaimer: The visit summary below is not to be considered part of the above Progress Note.
[2017-07-01 04:09] VITALS: BMI 39.4
[2017-07-01] MEDS: LR 1,000 ML IV SCH ×2 (04:36→14:34)
[2017-07-01] MEDS: ONDANSETRON 4 MG/2 ML INJECTION IVP PRN ×2 (07:41→23:47)
[2017-07-01] MEDS: ACETAMINOPHEN 325 MG TABLET PO PRN (07:42)
--- NOTE | 2017-07-01 08:28 | XRay Report ---
INDICATION: cough, fever PROCEDURE: CHEST 2-VIEWS UPRIGHT (PA & LAT) Encounter: Initial COMPARISON: None FINDINGS: The lungs are clear without evidence of focal abnormal airspace opacity. There is no pleural effusion or pneumothorax. Bilateral surgical clips. Overlying monitoring age. The heart size and pulmonary vascularity are within normal limits. Moderate sized hiatal hernia. There is no significant skeletal abnormality. IMPRESSION: No acute cardiopulmonary disease. .
[2017-07-01] MEDS: HYDROCODONE/APAP 5mg/325mg TABLET PO PRN ×3 (13:25→23:48)
--- NOTE | 2017-07-01 14:23 | History & Physical Report ---
History of Present Illness Date: 07/01/17 HPI: Overnight HPI 61-year-old white female presents to the emergency room with cough and dizziness and heart palpitations. Her illness began on Sunday, cough congestion and low-grade fever and muscle aches. Tonight she got quite short of breath and couldn't catch her breath and felt panicky. When evaluated in the emergency room heart rate was quite rapid and she was found to be in atrial flutter. She received an IV bolus of Cardizem 20 mg, within 30 minutes she had converted back to sinus rhythm. She was however noted to be hypoxic, and wheezing. She received an albuterol breathing treatments and this improved the wheezing but not the hypoxia. She does smoke between 1/2-2 packs per day, but doesn't typically use an albuterol treatment etc. She has had previous episodes of palpitations, and was taking propranolol which did seem to help. She's not had a previous cardiac evaluation. She didn't take her dose of propranolol this evening because of being in the hospital. Follow up HPI Pt has had flu like sx's for last 2-3 days. Pt came into the ED d/t difficulty breathing. Pt reports she has had episodes in the past where her HR has been high but she is unclear of any past diagnosis of afib/aflutter. Pt is an active smoker. Currently pt is breathing better, denies any n/v/d, f/c. Please see previous H&P for full information including PMH, SH, FH and ROS. Past Medical History Patient Stated Medical History Cataracts Yes Macular Degeneration Yes: "MACULAR HOLE IN LEFT EYE" Other HEENT LEGALLY BLIND L eye Cardiac Arrhythmia Yes: A-Fib Hypertension Yes Pneumonia Yes: hx Anemia Yes Surgical History: Hysterectomy. [place] tooth extraction. Left carpal tunnel repair. Bilateral 1st rib removal Family History Updates: Reviewed - Social History Smoking status: Current every day smoker (1/2-2 packs per day since age 21) Medications Home Medications Medication Instructions Recorded Confirmed Type Propranolol HCl 10 mg PO BID #0 10/12/15 07/01/17 History Ibuprofen 600 mg PO Q6H PRN #0 06/23/16 07/01/17 History Ferrous Sulfate 325 mg PO BIDWM #0 10/07/16 07/01/17 History Allergies Allergy/AdvReac Type Severity Reaction Status Date / Time cefaclor Allergy Unknown DYSPNEA Verified 07/01/17 03:35 clindamycin Allergy Unknown Verified 07/01/17 03:35 hydroxyzine Allergy Unknown Verified 07/01/17 03:35 povidone-iodine Allergy Unknown Verified 07/01/17 03:35 Exam Vital Signs: Temperature 98.1 F 07/01/17 07:23 Pulse Rate 74 07/01/17 08:00 Respiratory Rate 18 07/01/17 07:23 Blood Pressure 124/68 07/01/17 07:23 Pulse Oximetry 93 07/01/17 07:23 Height/Weight/BMI: Height 5 ft 2 in Weight 98 kg Body Mass Index 39.4 - Constitutional Present: mild distress - Routine HEENT Exam Head: Present: normocephalic, atraumatic Eye: Present: EOMI, PERRL ENT: Present: mucous membranes moist - Routine Respiratory Exam Present: dyspnea, wheezes. Absent: crackles - Routine Cardiovascular Exam Present: RRR, no murmur - Routine Abdominal Exam Present: soft, non distended, non tender - Routine Extremities Exam Present: no edema. Absent: cyanosis, clubbing - Routine Skin Exam Present: intact. Absent: cyanosis, erythema - Routine Neurological Exam Present: alert, oriented X3 Results - Labs CBC & Chem 7: 07/01/17 01:08 07/01/17 01:08 Assessment and Plan (1) Influenza A Current visit: Yes Status: Acute (2) Atrial flutter Current visit: Yes Status: Acute (3) Tobacco use disorder Current visit: Yes Status: Acute Assessment and Plan: Acute Hypoxic Respiratory Failure -Likely baseline lung function not great with long smoking hx -Made worse by URI, CXR without any acute pathology -Supportive treatment with O2, RCAT -On 2l O2 Influenza -Positive for influenza A -In the window for tamiflu, will cont. for 5 days HTN -On metoprolol Ppx -SCDs - Physician Narrative Narrative: Date: 07/01/17 Time: 1410 Hospital Course Summary Disclaimer: The visit summary below is not to be considered part of the above Progress Note. Hospital Course: 07/01/17 15:13 Pt admitted for respiratory status worsening d/t influenza, will do tamiflu and supportive tx and monitor.
[2017-07-01] MEDS: ALBUTEROL/IPRATROPIUM 2.5mg-0.5mg/3ml NEB AEROSOL PRN ×2 (16:19→20:15)
[2017-07-01] MEDS: FERROUS SULFATE 324 MG TABLET PO SCH (18:24)
[2017-07-02] MEDS: LR 1,000 ML IV SCH (00:57)
[2017-07-02] MEDS ORDERED: KETOROLAC 15 MG/ML INJECTION IVP ONE (01:10)
[2017-07-02] MEDS ORDERED: MORPHINE SULFATE 2mg INJECTION IVP PRN (01:10)
[2017-07-02] MEDS: FERROUS SULFATE 324 MG TABLET PO SCH ×2 (08:04→17:00)
[2017-07-02] MEDS: HYDROCODONE/APAP 5mg/325mg TABLET PO PRN ×2 (08:04→13:45)
[2017-07-02] MEDS: ALBUTEROL/IPRATROPIUM 2.5mg-0.5mg/3ml NEB AEROSOL PRN ×2 (08:22→23:41)
[2017-07-02] MEDS: ACETAMINOPHEN 325 MG TABLET PO PRN ×2 (10:28→20:12)
--- NOTE | 2017-07-02 14:19 | Progress Note ---
- Date 07/02/17 Subjective: Pt reports she's feeling a bit better but not that much. Denies any n/v, cp. Does report some sob. Denies any f/c. Pt is still fatigued. Objective Vital signs: Temperature 99.2 F 07/02/17 07:43 Pulse Rate 61 07/02/17 10:12 Respiratory Rate 16 07/02/17 08:29 Blood Pressure 153/83 H 07/02/17 07:43 Pulse Oximetry 93 07/02/17 10:12 Height/Weight/BMI: Height 5 ft 2 in Weight 99.3 kg Body Mass Index 39.4 - Constitutional Present: mild distress - Routine HEENT Exam Head: Present: normocephalic, atraumatic Eye: Present: EOMI, PERRL ENT: Present: mucous membranes moist - Routine Respiratory Exam Present: wheezes. Absent: accessory muscle use - Routine Cardiovascular Exam Present: RRR, no murmur - Routine Abdominal Exam Present: soft, non distended, non tender - Routine Extremities Exam Present: no edema. Absent: cyanosis, clubbing - Routine Skin Exam Present: intact, dry. Absent: erythema - Routine Neurological Exam Present: alert, oriented X3 Results - Labs CBC & Chem 7: 07/01/17 01:08 07/02/17 08:56 Assessment and Plan (1) Influenza A Current visit: Yes Status: Acute (2) Atrial flutter Current visit: Yes Status: Acute (3) Tobacco use disorder Current visit: Yes Status: Acute Assessment and Plan: Acute Hypoxic Respiratory Failure -Likely baseline lung function not great with long smoking hx -Made worse by URI, CXR without any acute pathology -Supportive treatment with O2, RCAT -On 2l O2 Influenza -Positive for influenza A -In the window for tamiflu, will cont. for 5 days HTN -On metoprolol Ppx -SCDs - Physician Narrative Narrative: Date: 07/02/17 Time: 1415 Hospital Course Summary Disclaimer: The visit summary below is not to be considered part of the above Progress Note. Hospital Course: 07/01/17 15:13 Pt admitted for respiratory status worsening d/t influenza, will do tamiflu and supportive tx and monitor. 07/02/17 14:24 Pt improving slowly, will cont. supportive therapy and monitor.
[2017-07-02] MEDS: ONDANSETRON 4 MG/2 ML INJECTION IVP PRN (15:18)
[2017-07-02] MEDS: SALINE FLUSH 10ml SYRINGE IVF PRN (20:13)
[2017-07-03] MEDS: ACETAMINOPHEN 325 MG TABLET PO PRN ×3 (03:35→20:33)
[2017-07-03] MEDS: FERROUS SULFATE 324 MG TABLET PO SCH ×2 (09:19→16:53)
[2017-07-03] MEDS: ONDANSETRON 4 MG/2 ML INJECTION IVP PRN (09:25)
[2017-07-03] MEDS ORDERED: IBUPROFEN 600 MG TABLET PO ONE (12:44)
[2017-07-03] MEDS ORDERED: SUMAtriptan 6 MG/0.5 ML VIAL SQ ONE (12:44)
--- NOTE | 2017-07-03 14:46 | Progress Note ---
- Date 07/03/17 Subjective: Pt reports feeling better other then headache/migraine. Reports nausea and sensitivity to light, reports its more frontal but it is mostly present everywhere on head. Denies any auditory sx's, denies any numbness or weakness. Denies any auras. Reports throbbing dull pain. The headache has lasted for multiple hours now. Tylenol and opiates aren't helping. Pt would really like something to help with that. Objective Vital signs: Temperature 97.9 F 07/03/17 07:25 Pulse Rate 59 L 07/03/17 08:00 Respiratory Rate 14 07/03/17 07:25 Blood Pressure 133/73 07/03/17 07:25 Pulse Oximetry 94 07/03/17 13:28 - Constitutional Present: mild distress - Routine HEENT Exam Head: Present: normocephalic, atraumatic Eye: Present: EOMI, PERRL - Routine Respiratory Exam Present: CTA bilaterally. Absent: dyspnea - Routine Cardiovascular Exam Present: RRR, no murmur - Routine Abdominal Exam Present: soft, non distended, non tender - Routine Extremities Exam Present: no edema. Absent: cyanosis, clubbing - Routine Skin Exam Present: intact, dry. Absent: cyanosis, erythema - Routine Neurological Exam Present: alert, oriented X3, CN II-XII intact - Routine Psychiatric Exam Present: normal affect, normal thought process Results - Labs CBC & Chem 7: 07/01/17 01:08 07/02/17 08:56 Assessment and Plan (1) Influenza A Current visit: Yes Status: Acute (2) Atrial flutter Current visit: Yes Status: Acute (3) Tobacco use disorder Current visit: Yes Status: Acute Assessment and Plan: Acute Hypoxic Respiratory Failure -Likely baseline lung function not great with long smoking hx -Made worse by URI, CXR without any acute pathology -Supportive treatment with O2, RCAT -On 2l O2 Influenza -Positive for influenza A -In the window for tamiflu, will cont. for 5 days Migraine -Sx's seem to fit migraine -Will try Sumatriptan/ibuprofen combo Sinus Bradycardia -Hr in 50s, asymptomatic -Pt has had since start of metoprolol, will stop and put her back on her home propanolol -Pt can follow up with pcp about fast HR that she reports gets sometimes, may benefit from holter monitor HTN -On metoprolol Ppx -SCDs - Physician Narrative Narrative: Date: 07/03/17 Time: 1442 Hospital Course Summary Disclaimer: The visit summary below is not to be considered part of the above Progress Note. Hospital Course: 07/01/17 15:13 Pt admitted for respiratory status worsening d/t influenza, will do tamiflu and supportive tx and monitor. 07/02/17 14:24 Pt improving slowly, will cont. supportive therapy and monitor. 07/03/17 14:48 Pt improving from flu standpoint but having a bad migraine, will try triptan tx and see how she does. Pt having mild asymptomatic [place], will switch from metoprolol back to home popranolol.
[2017-07-03] MEDS: PROPRANOLOL 10 MG TABLET PO SCH (20:33)
[2017-07-04] MEDS: LR 1,000 ML IV SCH (08:06)
[2017-07-04 08:13] VITALS: BP 151/98; RESP 11; TEMP 98.1; O2SAT 95
[2017-07-04 08:17] VITALS: PULSE 74
[2017-07-04] MEDS: PROPRANOLOL 10 MG TABLET PO SCH (08:50)
[2017-07-04] MEDS: FERROUS SULFATE 324 MG TABLET PO SCH (08:50)
[2017-07-04] MEDS: ACETAMINOPHEN 325 MG TABLET PO PRN (10:19)
[2017-07-04] MEDS ORDERED: LOPERAMIDE 2 MG CAPSULE PO PRN ×2 (11:56→11:58)
--- NOTE | 2017-07-04 13:33 | Discharge Summary ---
Discharge Information Date of admission: 07/03/17 13:15 Anticipated date of discharge: 07/04/17 Attending Physician: Mikki Lei MD Primary care physician: Omkar Field, DO - Discharge Diagnosis (1) Influenza A Status: Acute (2) Atrial flutter Status: Acute (3) Tobacco use disorder Status: Acute - Laboratory Labs: 07/04/17 04:25 07/04/17 04:25 History of Present Illness HPI: Overnight HPI 61-year-old white female presents to the emergency room with cough and dizziness and heart palpitations. Her illness began on Sunday, cough congestion and low-grade fever and muscle aches. Tonight she got quite short of breath and couldn't catch her breath and felt panicky. When evaluated in the emergency room heart rate was quite rapid and she was found to be in atrial flutter. She received an IV bolus of Cardizem 20 mg, within 30 minutes she had converted back to sinus rhythm. She was however noted to be hypoxic, and wheezing. She received an albuterol breathing treatments and this improved the wheezing but not the hypoxia. She does smoke between 1/2-2 packs per day, but doesn't typically use an albuterol treatment etc. She has had previous episodes of palpitations, and was taking propranolol which did seem to help. She's not had a previous cardiac evaluation. She didn't take her dose of propranolol this evening because of being in the hospital. Follow up HPI Pt has had flu like sx's for last 2-3 days. Pt came into the ED d/t difficulty breathing. Pt reports she has had episodes in the past where her HR has been high but she is unclear of any past diagnosis of afib/aflutter. Pt is an active smoker. Currently pt is breathing better, denies any n/v/d, f/c. Please see previous H&P for full information including PMH, SH, FH and ROS. Objective Vital signs: Temperature 98.1 F 07/04/17 07:00 Pulse Rate 74 07/04/17 08:00 Respiratory Rate 11 07/04/17 07:00 Blood Pressure 151/98 H 07/04/17 07:00 Pulse Oximetry 95 07/04/17 07:00 Height/Weight/BMI: Weight 96.5 kg - Constitutional Present: no acute distress - Routine HEENT Exam Head: Present: normocephalic, atraumatic Eye: Present: EOMI, PERRL - Routine Respiratory Exam Present: CTA bilaterally. Absent: wheezes, crackles - Routine Cardiovascular Exam Present: RRR, no murmur - Routine Abdominal Exam Present: soft, non distended, non tender - Routine Extremities Exam Present: no edema. Absent: cyanosis, clubbing - Routine Back/Spine/Pelvis Exam Back/Spine: Present: full ROM - Routine Skin Exam Present: intact, dry. Absent: erythema - Routine Neurological Exam Present: alert, oriented X3 - Routine Psychiatric Exam Present: normal affect, normal thought process Hospital Course This is a general summary of the patient's hospital course. For more details refer to the complete medical record. Discharge Summary Pt presented with flu like sx's and was found to have influenza A. She was requiring 2L O2 which was later titrated off. Pt did well with tamiflu. Pt had one episode of migraine that responded well to sumatriptan/ibuprofen tx. Pt had some loose stools while in the hospital but tested negative for c. diff. Pt apparently had some tachycardia in the ED and was started on metoprolol by the overnight team but pt had bradycardia so metoprolol was stopped. Pt was put back on her home propranolol which she was reportedly taking for anxiety and bradycardia resolved. Pt reported occasional on and off episodes of tachycardia in the past but no official dx. Pt was informed that she should follow up with cardiology for this and would benefit from Holter monitor. Pt felt much better and felt good to go home. Pt was discharged on 2 additional days of tamiflu to complete 5 day course. Pt did have mild leukopenia with wbc of 3.4 during hospitalization and pt was informed to follow up on this as well with pcp. Pt's BP was variable and sometimes high in 150s systolic but other times <120 systolic and so no meds were started in the hospital and pt was asked to follow up with pcp with this as well. Hospital course: 07/01/17 15:13 Pt admitted for respiratory status worsening d/t influenza, will do tamiflu and supportive tx and monitor. 07/02/17 14:24 Pt improving slowly, will cont. supportive therapy and monitor. 07/03/17 14:48 Pt improving from flu standpoint but having a bad migraine, will try triptan tx and see how she does. Pt having mild asymptomatic [place], will switch from metoprolol back to home popranolol. Discharge Plan - Discharge Disposition Disposition: Discharged Home, Self-Care *Condition: Improved Reason For Visit (Visit label in EMR): influenza A - Discharge Medications *Discharge Medications: New Oseltamivir Cap [Tamiflu] 75 mg PO BID 2 Days #4 cap Continue Ferrous Sulfate 325 mg PO BIDWM #0 Propranolol HCl 10 mg PO BID #0 No Action Ibuprofen 600 mg PO Q6H PRN #0 PRN Reason: PAIN - Discharge Packet/Instructions *Diet: Regular *Activity: As tolerated Additional Instructions: Follow up with pcp in 7-10 days. *Expected Signs/Symptoms: fatigue, tired *Notify Physician if: high fevers, worsening shortness of breath *During Business Hours Contact: Primary care office *After Business Hours Contact: ER/Urgent care *Pending Lab/Results: No Pending Lab - Referrals/Follow Up - Patient Handouts Patient Handouts: Influenza (GEN) Physician Narrative - Narrative Attestation Narrative: Date: 07/04/17 Time: 1409
--- NOTE | 2017-07-04 13:47 | Work/School Release ---
Work/School Release - Date Date: 07/04/17 - Work Release Remain off work/school for:: Patient can go back to work on 07/10/2017 Excused for:: Influenza
== END 2017-07-04 15:30 | disposition home or self-care (01) | DRG 194 ==
LOC: MED 00:29 → ED 00:29 → SUATTDRO 03:43 → MED 03:51
PROVIDERS: ADMIT Pediatrics; ATTEND Internal Medicine